=== PATIENT | male | born 1945 | race Caucasian/White ===

== ENCOUNTER 2018-04-13 03:31 | Inpatient (IN) ==
--- NOTE | 2018-04-13 03:52 | Emergency Department Note ---
SOB HPI - General Chief Complaint: Shortness of Breath/Dyspnea Stated Complaint: Short of breath Time Seen by Provider: 04/13/18 03:35 Source: patient Mode of arrival: ambulatory Limitations: no limitations - History of Present Illness Patient complains of shortness of breath, progressive for the last 24 hours. [place] like he cannot get a deep breath in. Does have an occasional cough but denies any flulike symptoms. No fevers or chills, no chest pain, shortness of breath developed gradually over the course of last day. Denies nausea vomiting diarrhea. No recent increase in ankle swelling. No other symptoms. No history of trauma. Former smoker quit in 2007. On arrival his O2 sat was 71% MD Complaint: shortness of breath - Related Data Home Medications Medication Instructions Recorded Confirmed Aspirin 81 mg CHEWED HS 08/04/15 01/16/17 Atorvastatin [Lipitor] 10 mg PO HS 08/04/15 01/16/17 Carvedilol [Coreg] 25 mg PO BIDCC 08/04/15 01/16/17 Escitalopram [Lexapro] 20 mg PO DAILY 08/04/15 01/16/17 Febuxostat [Uloric] 40 mg PO DAILY 08/04/15 01/16/17 Finasteride [Proscar] 5 mg PO HS 08/04/15 01/16/17 Levothyroxine [Synthroid] 50 mcg PO QAMAC 08/04/15 01/16/17 Losartan [Cozaar] 50 mg PO DAILY 08/04/15 01/16/17 Tamsulosin [Flomax] 0.4 mg PO HS 08/04/15 01/16/17 Spironolactone [Aldactone] 25 mg PO ONCE 01/16/17 01/16/17 Torsemide [Demadex] 20 mg PO DAILY 01/16/17 01/16/17 Previous Rx's Medication Instructions Recorded Docusate Sodium [Colace] 100 mg PO BID #60 capsule 08/09/15 HYDROcodone/APAP 10/325MG [[place] 1 - 2 tab PO Q4HP PRN #90 tablet 08/09/15 10-325Mg] Allergies Allergy/AdvReac Type Severity Reaction Status Date / Time chlortetracycline Allergy Mild Hives Verified 04/13/18 03:36 [Chlortetracycline] Review of Systems All systems ED: reviewed and negative except as stated. Past Medical History - Past Medical History Source: old records reviewed Medical history: Reports: coronary artery disease, DM, hyperlipidemia, hypertension, thyroid disease Psychiatric history: Reports: anxiety, depression Surgical history ED: Reports: cataract, herniorrhaphy Family history: Reports: no significant family history - Social History smoking status: Former smoker Alcohol use: Reports: None Physical Exam Limitations: no limitations General appearance: alert Head: atraumatic, normocephalic Eye: Present: normal appearance, PERRL, EOMI. Absent: scleral icterus, conjunctival injection ENT: normal exam, normal oropharynx, mucous membranes moist, TM's normal bilaterally Neck: Present: normal inspection, full ROM, trachea midline. Absent: tende rness, meningismus Chest: Present: normal inspection, symmetric chest wall rise Respiratory: Present: normal lung sounds bilaterally. Absent: respiratory distress, rales/crackles Cardiovascular: Present: regular rate, normal rhythm, normal heart sounds Abdominal: Present: soft, normal bowel sounds. Absent: distention, tenderness, trauma Extremities: Present: normal inspection, full ROM, tenderness, normal capillary refill. Absent: pedal edema, joint swelling, calf tenderness Back: Present: normal inspection Neurological: Present: alert, oriented X3, CN II-XII intact Psychiatric: Present: normal affect Skin: Present: warm, dry, intact, normal color. Absent: cyanosis Course - Reevaluation(s) Reevaluation #1: Patient was started on oxygen. We also started IV fluids up. Labs reviewed. ProBNP was normal. Does appear to have either a mass or an effusion to the left lower lobe. His d-dimer was elevated and I discussed obtaining a CT pulmonary angiogram versus CT of the chest with contrast and risks and benefits explained. He is hesitant to undergo CT scan imaging and thus we are pursuing getting a VQ scan. Options are discussed and he wishes to proceed with a VQ scan. We will need to transfer and I spoke with Dr. Juju Garcia in the emergency department will gladly accepted the patient as he will be monitored there while he is getting this VQ scan. Also spoke with Dr. Ochoa regarding hospital admission. At this point his symptoms are suspicious for PE. We did start him on Lovenox 100 120 mg subcutaneous Vital Signs Temperature 97.6 F 04/13/18 03:32 Pulse Rate 78 04/13/18 03:32 Respiratory Rate 24 H 04/13/18 03:32 Blood Pressure 145/81 04/13/18 03:32 Pulse Oximetry (%) 71 L 04/13/18 03:32 Temperature 97.6 F 04/13/18 03:32 Pulse Rate 66 04/13/18 06:40 Respiratory Rate 13 04/13/18 06:40 Blood Pressure 142/75 04/13/18 06:31 Pulse Oximetry (%) 98 04/13/18 06:40 Shortness of Breath/Dyspnea - [facility] Narrative Medical decision making narrative: Final diagnosis is hypoxia undetermined etiology. When is to admit him to the hospital, spoke with Dr. Ochoa. We will obtain V/Q scanning in the interim at [facility]. - Lab Data Result diagrams: 04/13/18 03:40 04/13/18 03:40 Lab Results 04/13/18 04/13/18 04/13/18 Range/Units 03:40 03:40 03:40 WBC 7.9 (4.5-11.0) K/mcL RBC 5.22 (4.50-5.90) M/mcL Hgb 15.7 (13.5-16.5) g/dL Hct 47.9 (41.0-55.0) % POC Hct 50.0 (41.0-55.0) % MCV 91.8 (80.0-100.0) fL MCH 30.0 (26.0-34.0) pg MCHC 32.7 (31.0-36.0) g/dL RDW 14.7 H (11.5-14.5) % Plt Count 210 (140-440) K/mcL MPV 8.0 (7.4-10.4) fL Gran % 76.0 (38.0-78.0) % Lymph % (Auto) 13.0 L (15.5-49.0) % Loving % (Auto) 8.9 (1.0-12.0) % Eos % (Auto) 2.0 (0.0-7.0) % Baso % (Auto) 0.1 (0.0-2.0) % Gran # 6.0 (1.8-8.0) K/mcL Lymph # (Auto) 1.0 L (1.5-4.8) K/mcL Loving # (Auto) 0.7 (0.1-0.9) K/mcL Eos # (Auto) 0.2 (0.0-0.7) K/mcL Baso # (Auto) 0 (0.0-0.3) K/mcL D-Dimer 1.56 H (0.00-0.40) ug/ml VBG Lactic Acid (0.5-2.0) mmol/L POC Sodium 140 (133-145) mmol/L Sodium (133-145) mmol/L POC Potassium 3.7 (3.3-5.1) mmol/L Potassium (3.3-5.1) mmol/L POC Chloride 96 (96-108) mmol/L Chloride (96-108) mmol/L Carbon Dioxide (22-30) mmol/L POC Total CO2 30 (22-30) mmol/L Anion Gap (8-16) POC BUN 37 H (8-23) mg/dl BUN (8-23) mg/dl Creatinine (0.7-1.2) mg/dl POC Creatinine 1.6 H (0.7-1.2) mg/dl GFR Calculation Glucose (70-105) mg/dL POC Glucose 125 H (70-105) mg/dL Calcium (8.6-10.4) mg/dl POC WB Ioniz Calcium 1.04 L (1.16-1.32) mmol/L Total Bilirubin (0.0-1.0) mg/dL AST (0-37) U/l ALT (0-40) U/l Alkaline Phosphatase (39-117) U/L Troponin T (0-0.03) ng/ml NT-Pro-B Natriuret Pep (0-125) pg/ml Total Protein (5.9-8.4) gm/dL Albumin (3.2-5.2) gm/dL Globulin (2.2-3.7) gm/dL Albumin/Globulin Ratio (1.0-2.3) 04/13/18 04/13/18 04/13/18 Range/Units 03:40 03:40 03:40 WBC (4.5-11.0) K/mcL RBC (4.50-5.90) M/mcL Hgb (13.5-16.5) g/dL Hct (41.0-55.0) % POC Hct (41.0-55.0) % MCV (80.0-100.0) fL MCH (26.0-34.0) pg MCHC (31.0-36.0) g/dL RDW (11.5-14.5) % Plt Count (140-440) K/mcL MPV (7.4-10.4) fL Gran % (38.0-78.0) % Lymph % (Auto) (15.5-49.0) % Loving % (Auto) (1.0-12.0) % Eos % (Auto) (0.0-7.0) % Baso % (Auto) (0.0-2.0) % Gran # (1.8-8.0) K/mcL Lymph # (Auto) (1.5-4.8) K/mcL Loving # (Auto) (0.1-0.9) K/mcL Eos # (Auto) (0.0-0.7) K/mcL Baso # (Auto) (0.0-0.3) K/mcL D-Dimer (0.00-0.40) ug/ml VBG Lactic Acid 1.6 (0.5-2.0) mmol/L POC Sodium (133-145) mmol/L Sodium 139 (133-145) mmol/L POC Potassium (3.3-5.1) mmol/L Potassium 3.9 (3.3-5.1) mmol/L POC Chloride (96-108) mmol/L Chloride 95 L (96-108) mmol/L Carbon Dioxide 31 H (22-30) mmol/L POC Total CO2 (22-30) mmol/L Anion Gap 13.0 (8-16) POC BUN (8-23) mg/dl BUN 35 H (8-23) mg/dl Creatinine 1.7 H (0.7-1.2) mg/dl POC Creatinine (0.7-1.2) mg/dl GFR Calculation 39 Glucose 126 H (70-105) mg/dL POC Glucose (70-105) mg/dL Calcium 9.2 (8.6-10.4) mg/dl POC WB Ioniz Calcium (1.16-1.32) mmol/L Total Bilirubin 1.0 (0.0-1.0) mg/dL AST 13 (0-37) U/l ALT 15 (0-40) U/l Alkaline Phosphatase 63 (39-117) U/L Troponin T 0.02 (0-0.03) ng/ml NT-Pro-B Natriuret Pep < 50.0 (0-125) pg/ml Total Protein 7.4 (5.9-8.4) gm/dL Albumin 4.4 (3.2-5.2) gm/dL Globulin 3.0 (2.2-3.7) gm/dL Albumin/Globulin Ratio 1.5 (1.0-2.3) Disposition Pt seen by SEED SPECIALIST/PA only: No Clinical Impression: Acute exacerbation of chronic obstructive airways disease, Community acquired pneumonia, Hypoxia Disposition: Still a Patient Condition: Serious Referrals: Miguel Martinez MD [Primary Care Provider] -
[2018-04-13 04:15] LABS: Basophils # (Auto) 0 K/mcL (0.0-0.3); Basophils % (Auto) 0.1 % (0.0-2.0); Eosinophils # (Auto) 0.2 K/mcL (0.0-0.7); Mean Cell Volume 91.8 fL (80.0-100.0); Mean Corpuscular HGB Conc 32.7 g/dL (31.0-36.0); Monocytes # (Auto) 0.7 K/mcL (0.1-0.9); Monocytes % (Auto) 8.9 % (1.0-12.0); Platelet Count 210 K/mcL (140-440); RBC 5.22 M/mcL (4.50-5.90); Red Cell Distribution Width 14.7 % (11.5-14.5)
[2018-04-13 04:38] LABS: proBNP < 50.0 pg/ml (0-125)
[2018-04-13 04:42] LABS: ALT/SGPT 15 U/l (0-40); Albumin 4.4 gm/dL (3.2-5.2); Albumin/Globulin Ratio 1.5 (1.0-2.3); Alkaline Phosphatase 63 U/L (39-117); Blood Urea Nitrogen 35 mg/dl (8-23)
[2018-04-13] MEDS ORDERED: ENOXAPARIN 120 MG/0.8 ML SYRINGE SQ ONE (06:36)
[2018-04-13] MEDS ORDERED: IPRATROPIUM/ALBUTEROL 3 ML AMPUL.NEB NEB ONE (06:37)
[2018-04-13] MEDS ORDERED: LACTATED RINGERS 1,000 ML IV SCH (07:00)
--- NOTE | 2018-04-13 08:43 | Internal Med History&Physical ---
Medical - H&P: HPI Patient information: Note initiated : 04/13/18 at 8:41 am Service Date, if different from initiated Date: [] Patient: Pradeep Zamorano a 72 y/o M admitted on for Short of breath. Chief Complaint: [] Chief complaint: SOB History of present illness: Mr. Zamorano is a 72 year old M with history of obesity hypoventilation syndrome/sleep apnea not on CPAP, history of hypertension, anxiety depression who presents to the ER with worsening shortness of breath associated with anx iety attack that has progressed over the last 12 hours. This morning patient could not breathe prompting him to come to ER. Patient symptoms has been ongoing over the last few months with progressive dyspnea and decreased functionality. His 3 years ago and ever since he has had frequent episodes of anxiety depression. He has gained over 50 pounds since his 's . He denies recent URI symptoms/this, sick contacts or travel. He said he is unable to take a deep breath however denies pleuritic chest pain lightheadedness or dizziness. He had a AAA repair at [place] by Dr. Victor Manuel Dutton few months ago. He follows up with PCP Brennon Neal Initial workup in the ER was consistent with hypoxia with oxygen saturation at 71% and was started on oxygen. In light of elevated creatinine VQ scan was performed to rule out PE at [place] which was negative. Chest imaging was unremarkable. Patient started on breathing treatment/supplemental oxygen. Hospitalist service was consulted in light of hypoxic respiratory failure. At the time of evaluation patient is anxious. He was able to endorse history as above. He denies bloody stools large joint pain endorses lower extremity swelling. He complains of effort intolerance. He recently had a stress test at [place]. 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 Lives alone Smoking status: Former smoker (Quit smoking 2007) Have you smoked in the last 12 months: No Alcohol use: none (Quit alcohol 2015) Medical - H&P: Meds Home Medications Medication Instructions Recorded Confirmed Type Aspirin 81 mg CHEWED HS 08/04/15 04/13/18 History Atorvastatin [Lipitor] 10 mg PO HS 08/04/15 04/13/18 History Carvedilol [Coreg] 25 mg PO BIDCC 08/04/15 04/13/18 History Escitalopram [Lexapro] 40 mg PO HS 08/04/15 04/13/18 History Febuxostat [Uloric] 40 mg PO DAILY 08/04/15 04/13/18 History Finasteride [Proscar] 5 mg PO HS 08/04/15 04/13/18 History Levothyroxine [Synthroid] 50 mcg PO QAMAC 08/04/15 04/13/18 History Losartan [Cozaar] 50 mg PO DAILY 08/04/15 04/13/18 History Tamsulosin [Flomax] 0.4 mg PO HS 08/04/15 04/13/18 History Spironolactone [Aldactone] 25 mg PO ONCE 01/16/17 04/13/18 History Torsemide [Demadex] 20 mg PO DAILY 01/16/17 04/13/18 History sitaGLIPtin [Januvia] 100 mg PO ONCE 04/13/18 04/13/18 History Allergies Allergy/AdvReac Type Severity Reaction Status Date / Time chlortetracycline Allergy Mild Hives Verified 04/13/18 03:36 [Chlortetracycline] Medical - H&P: Exam - Constitutional Vitals: Temp Pulse Resp BP Pulse Ox 97.6 F 74 17 108/93 94 04/13/18 03:32 04/13/18 08:15 04/13/18 08:01 04/13/18 08:01 04/13/18 08:15 General appearance: morbidly obese Exam: Eye movements symmetric Oral cavity dry No ear nose discharge Head normocephalic Neck no lymphadenopathy S1-S2 regular rhythm no murmur Diminished breath sounds bases but symmetrical Abdomen soft nontender extensive adiposity, pendulous Lower extremity no cyanosis clubbing Stasis venous changes/lymphedema No joint swelling erythema, normal range of motion of joints Skin no suspicious lesion Psych alert cooperative but anxious Neuro nonfocal Medical - H&P: Reslt - Labs CBC & Chem 7: 04/13/18 03:40 04/13/18 03:40 Labs: Short CBC 04/13/18 Range/Units 03:40 WBC 7.9 (4.5-11.0) K/mcL Hgb 15.7 (13.5-16.5) g/dL Hct 47.9 (41.0-55.0) % Plt Count 210 (140-440) K/mcL BMP 04/13/18 03:40 Sodium 139 Potassium 3.9 Chloride 95 L Carbon Dioxide 31 H BUN 35 H Creatinine 1.7 H Glucose 126 H Calcium 9.2 Cardiac Enzymes 04/13/18 Range/Units 03:40 Troponin T 0.02 (0-0.03) ng/ml Liver Function 04/13/18 Range/Units 03:40 Total Bilirubin 1.0 (0.0-1.0) mg/dL AST 13 (0-37) U/l ALT 15 (0-40) U/l Alkaline Phosphatase 63 (39-117) U/L Albumin 4.4 (3.2-5.2) gm/dL Medical - H&P: A/P (1) Acute respiratory failure with hypoxia Current visit: Yes Status: Acute * Acute hypoxic respiratory failure-etiology in question. Low probability PE. CT contrast chest in 24 hours once creatinine improves * Acute kidney injury. Obtain medical records from [place] to evaluate baseline. * History of CAD-continue statin/beta-arvin/ARB/aspirin-check echocardiogram * History of gout continue ULoric * Anxiety disorder continue escitalopram * Hypertension-continue spironolactone/losartan/Coreg * Hyperlipidemia-continue statin * Obstructive sleep apnea-patient did not tolerate CPAP in the past. Check echocardiogram to evaluate right heart pressures * Hypothyroidism-continue thyroxine * History of BPH-Tamsulosin/finasteride * DM type II-sitagliptin/prandial insulin * Full code * Prophylaxis currently full dose Lovenox Plan * Inpatient telemetry admit * Full dose anticoagulation * Echocardiogram * CT chest in 24 hours * Pulmonary toilet/bronchodilators * Pre-existing well condition management at home meds
--- NOTE | 2018-04-13 08:53 | XRay Report ---
HISTORY: Dyspnea FINDINGS: There are small bands of discoid atelectasis adjacent to both diaphragms. The mid and upper lung gallardo are clear. There is no alveolar infiltrate, mass or congestive heart failure. The heart size is within normal limits. No pleural effusion is present. IMPRESSION: Mild bibasilar discoid atelectasis Interpreted and Authenticated by: Dhiraj Adames 04/13/18
[2018-04-13] MEDS ORDERED: ACETAMINOPHEN 325 MG TABLET PO PRN (10:54)
[2018-04-13] MEDS ORDERED: ACETAMINOPHEN 1,000 MG/100 ML BOTTLE IV PRN (10:54)
[2018-04-13] MEDS ORDERED: POTASSIUM CHLORIDE 20 MEQ PACKET PO PRN (10:54)
[2018-04-13] MEDS ORDERED: HEPARIN 5,000 UNIT/ML VIAL SQ SCH (10:54)
[2018-04-13] MEDS ORDERED: MAGNESIUM SULFATE 2 GM/50 ML BAG IV PRN (10:54)
[2018-04-13] MEDS ORDERED: ONDANSETRON 4 MG/2 ML VIAL IV PRN (10:54)
[2018-04-13] MEDS ORDERED: DEXTROSE 31 GM ORAL.SUSP PO PRN (11:00)
[2018-04-13] MEDS ORDERED: DEXTROSE 50% 50 ML VIAL IV PRN (11:00)
[2018-04-13 12:00] LABS: C-Reactive Protein 3.8 mg/dl (0.0-0.8)
[2018-04-13] MEDS: IPRATROPIUM/ALBUTEROL 3 ML AMPUL.NEB NEB SCH ×4 (12:00→23:49)
[2018-04-13] MEDS: DOCUSATE SODIUM 100 MG CAPSULE PO SCH ×2 (12:12→20:08)
[2018-04-13] MEDS: MULTIVIT,THER IRON,CA,FA & MIN 1 TABLET PO SCH (12:12)
[2018-04-13] MEDS: LOSARTAN 50 MG TABLET PO SCH (12:12)
[2018-04-13] MEDS: 0.9 % SODIUM CHLORIDE 1,000 ML IV SCH (12:12)
[2018-04-13] MEDS: INSULIN LISPRO 1 UNIT/0.01 ML UNIT SQ SCH ×3 (12:19→20:24)
[2018-04-13] MEDS: BUDESONIDE 0.5 MG/2 ML AMPUL.NEB NEB SCH ×2 (12:41→20:42)
[2018-04-13] MEDS: 0.9 % SODIUM CHLORIDE 10 ML SYRINGE IV SCH ×2 (16:07→20:09)
[2018-04-13] MEDS: CARVEDILOL 12.5 MG TABLET PO SCH (17:27)
[2018-04-13] MEDS: RIVAROXABAN 15 MG TABLET PO SCH (17:27)
[2018-04-13] MEDS: ATORVASTATIN 20 MG TABLET PO SCH (20:05)
[2018-04-13] MEDS: TAMSULOSIN 0.4 MG CAPSULE PO SCH (20:05)
[2018-04-13] MEDS: ESCITALOPRAM 20 MG TABLET PO SCH (20:06)
[2018-04-13] MEDS: ASPIRIN 81 MG TAB.CHEW CHEWED SCH (20:06)
[2018-04-13] MEDS: FINASTERIDE 5 MG TABLET PO SCH (20:06)
[2018-04-13] MEDS: SENNOSIDES/DOCUSATE SODIUM 1 TAB TABLET PO SCH (20:08)
[2018-04-14] MEDS: IPRATROPIUM/ALBUTEROL 3 ML AMPUL.NEB NEB SCH ×6 (03:30→22:45)
[2018-04-14] MEDS: 0.9 % SODIUM CHLORIDE 10 ML SYRINGE IV SCH ×3 (05:25→22:06)
[2018-04-14 06:19] LABS: Mean Corpuscular HGB Conc 32.5 g/dL (31.0-36.0); Platelet Count 176 K/mcL (140-440); RBC 4.64 M/mcL (4.50-5.90); Red Cell Distribution Width 14.4 % (11.5-14.5)
[2018-04-14] MEDS: LEVOTHYROXINE 50 MCG TABLET PO SCH (07:33)
[2018-04-14 07:41] LABS: Eosinophils % (Manual) 4 % (0-7); Lymphocytes % 15 % (15-49); Monocytes % (Manual) 7 % (1-12); Platelet Estimate NORMAL (NORMAL); RBC Morphology NORMAL (NORMAL); Segmented Neutrophils % 74 % (38-78)
[2018-04-14] MEDS: BUDESONIDE 0.5 MG/2 ML AMPUL.NEB NEB SCH ×2 (07:59→22:45)
[2018-04-14] MEDS: INSULIN LISPRO 1 UNIT/0.01 ML UNIT SQ SCH ×4 (08:27→22:03)
[2018-04-14] MEDS: RIVAROXABAN 15 MG TABLET PO SCH ×2 (08:28→16:58)
[2018-04-14] MEDS: sitaGLIPtin 100 MG TABLET PO SCH (08:28)
[2018-04-14] MEDS: CARVEDILOL 12.5 MG TABLET PO SCH ×2 (08:28→16:58)
[2018-04-14] MEDS: MULTIVIT,THER IRON,CA,FA & MIN 1 TABLET PO SCH (08:28)
[2018-04-14] MEDS: SPIRONOLACTONE 25 MG TABLET PO SCH (08:28)
[2018-04-14] MEDS: DOCUSATE SODIUM 100 MG CAPSULE PO SCH ×2 (08:28→22:05)
[2018-04-14] MEDS: TORSEMIDE 10 MG TABLET PO SCH (08:28)
[2018-04-14] MEDS: LOSARTAN 50 MG TABLET PO SCH (08:28)
[2018-04-14 08:55] LABS: ALT/SGPT 13 U/l (0-40); Albumin/Globulin Ratio 1.3 (1.0-2.3); Alkaline Phosphatase 58 U/L (39-117); Bilirubin,Direct 0.3 mg/dL (0.0-0.3); Blood Urea Nitrogen 24 mg/dl (8-23); Gamma Glutamyl Transpeptidase 18 U/L (8-61); Uric Acid 8.1 mg/dL (2.5-8.0)
[2018-04-14] MEDS ORDERED: FEBUXOSTAT 40 MG PO SCH (09:00)
[2018-04-14] MEDS ORDERED: PNEUMOCOCCAL 23-VAL P-SAC VAC 0.5 ML SYRINGE IM ONE (10:00)
--- NOTE | 2018-04-14 10:21 | Internal Med Progress Note ---
Medical - PN: Subj Patient information: Note initiated : 04/14/18 at 10:18 am Service Date, if different from initiated Date: [] Patient: Pradeep Zamorano a 72 y/o M admitted on 04/13/18 for Short of breath. Chief Complaint: [] Interval history: Mr. Zamorano is a 72 year old M with history of obesity hypoventilation s yndrome/sleep apnea not on CPAP, history of hypertension, anxiety depression who presents to the ER with worsening shortness of breath associated with anxiety attack that has progressed over the last 12 hours. This morning patient could not breathe prompting him to come to ER. Patient symptoms has been ongoing over the last few months with progressive dyspnea and decreased functionality. His 3 years ago and ever since he has had frequent episodes of anxiety depression. He has gained over 50 pounds since his 's . He denies recent URI symptoms/this, sick contacts or travel. He said he is unable to take a deep breath however denies pleuritic chest pain lightheadedness or dizziness. He had a AAA repair at [place] by Dr. Victor Manuel Dutton few months ago. He follows up with PCP Brennon Neal Initial workup in the ER was consistent with hypoxia with oxygen saturation at 71% and was started on oxygen. In light of elevated creatinine VQ scan was performed to rule out PE at [place] which was negative. Chest imaging was unremarkable. Patient started on breathing treatment/supplemental oxygen. Hospitalist service was consulted in light of hypoxic respiratory failure. At the time of evaluation patient is anxious. He was able to endorse history as above. He denies bloody stools large joint pain endorses lower extremity swelling. He complains of effort intolerance. He recently had a stress test at [place]. 04/13-patient doing better. CT angiogram chest in a.m. Creatinine down to 1.3. Much improved anxiety. Sats93% on 2 L oxygen. Able to ambulate. Tolerating diet. Discussed echo finding with multichamber enlargement/dilatation but norm al EF. Right ventricle pressures could not be assessed. Also discussed about using CPAP. RT to evaluate nasal trumpet/pillow for better delivery and improve compliance. No other concerns expressed by nursing staff. If negative CTA will DC anticoagulation - Constitutional Vitals: Vital Signs Temp Pulse Resp BP Pulse Ox 97.2 F 64 16 158/76 97 04/14/18 07:25 04/14/18 08:06 04/14/18 08:06 04/14/18 07:25 04/14/18 08:00 Period Temp Pulse Resp BP Sys/Hercules Pulse Ox Last 24 Hr 97.2 F-99.2 F 62-90 16-24 118-158/64-93 93-99 Intake and Output 04/13/18 04/14/18 04/14/18 21:59 05:59 13:59 Intake Total 920 300 Output Total 600 775 Balance 320 -475 Weight 321 lb 14.4 oz Intake & Output: Intake & Output 04/13/18 04/14/18 04/14/18 21:59 05:59 13:59 Intake Total 920 300 Output Total 600 775 Balance 320 -475 Weight 321 lb 14.4 oz Intake: Oral 920 300 Output: Void Amount 600 775 Other: Meal Lunch Urine Appearance Clear Clear Urine Color Dark Yellow Dark Yellow Urine Odor Normal General appearance: morbidly obese, no acute distress Exam: Improved anxiety No labored breathing on 2 L oxyge Minimal lymphedema Alert oriented No telemetry events Medical - PN: Obj Da - Labs CBC & Chem 7: 04/14/18 03:30 04/14/18 07:55 Labs: Abnormal Lab Results 04/14/18 04/13/18 04/13/18 07:55 11:13 11:13 RDW Lymph % (Auto) Lymph # (Auto) ESR 24 H D-Dimer Chloride Carbon Dioxide POC BUN BUN 24 H Creatinine 1.3 H POC Creatinine Glucose 137 H POC Glucose Uric Acid 8.1 H POC WB Ioniz Calcium Phosphorus 2.2 L Total Bilirubin 1.6 H C-Reactive Protein 3.8 H 04/13/18 04/13/18 04/13/18 03:40 03:40 03:40 RDW 14.7 H Lymph % (Auto) 13.0 L Lymph # (Auto) 1.0 L ESR D-Dimer 1.56 H Chloride 95 L Carbon Dioxide 31 H POC BUN BUN 35 H Creatinine 1.7 H POC Creatinine Glucose 126 H POC Glucose Uric Acid POC WB Ioniz Calcium Phosphorus Total Bilirubin C-Reactive Protein 04/13/18 03:40 RDW Lymph % (Auto) Lymph # (Auto) ESR D-Dimer Chloride Carbon Dioxide POC BUN 37 H BUN Creatinine POC Creatinine 1.6 H Glucose POC Glucose 125 H Uric Acid POC WB Ioniz Calcium 1.04 L Phosphorus Total Bilirubin C-Reactive Protein Meds: Medications Acetaminophen (Tylenol) 650 mg PO Q4-6HP PRN PRN Reason: PAIN/FEVER > 101 Albuterol/Ipratropium (Duoneb) 3 ml NEB Q4HRT [facility] Last Admin: 04/14/18 07:59 Dose: 3 ml Documented by: Aspirin (Aspirin) 81 mg CHEWED [facility] Last Admin: 04/13/18 20:06 Dose: 81 mg Documented by: Atorvastatin Calcium (Lipitor) 10 mg PO [facility] Last Admin: 04/13/18 20:05 Dose: 10 mg Documented by: Budesonide (Pulmicort) 0.5 mg NEB Q12 [facility] Last Admin: 04/14/18 07:59 Dose: 0.5 mg Documented by: [facility] Last Admin: 04/14/18 08:28 Dose: 25 mg Documented by: Dextrose (Dextrose 50%) 0 ml IV UD PRN PRN Reason: Hypoglycemia Diagnostic Test (Pha) (Accu-Chek) 1 each FS ACHS [facility] Last Admin: 04/14/18 08:27 Dose: 1 each Documented by: Docusate Sodium (Colace) 100 mg PO BID [facility] Last Admin: 04/14/18 08:28 Dose: 100 mg Documented by: Escitalopram Oxalate (Lexapro) 40 mg PO [facility] Last Admin: 04/13/18 20:06 Dose: 40 mg Documented by: Finasteride (Proscar) 5 mg PO [facility] Last Admin: 04/13/18 20:06 Dose: 5 mg Documented by: Glucose (Insta-Glucose) 15 gm PO PRN PRN PRN Reason: Hypoglycemia Magnesium Sulfate (Magnesium Sulfate) 2 gm in 50 mls @ 50 mls/hr IV UD PRN PRN Reason: MG = or < 1.7 Sodium Chloride (Sodium Chloride 0.9%) 1,000 mls @ 50 mls/hr IV .Q20H [facility] Stop: 04/15/18 22:53 Last Admin: 04/13/18 12:12 Dose: 50 mls/hr Documented by: Acetaminophen (Ofirmev) 1,000 mg in 100 mls @ 200 mls/hr IV Q6HP PRN PRN Reason: PAIN/FEVER > 101 Insulin Human Lispro (Humalog) 0 unit SQ ACHS [facility]; Protocol Last Admin: 04/14/18 08:27 Dose: 1 units Documented by: Iron Carb/Multivit/Whatcom/Folic Acid (Multivitamin W/Minerals) 1 tab PO DAILY [facility] Last Admin: 04/14/18 08:28 Dose: 1 tab Documented by: Levothyroxine Sodium (Synthroid) 50 mcg PO QAMAC [facility] Last Admin: 04/14/18 07:33 Dose: 50 mcg Documented by: Losartan Potassium (Cozaar) 50 mg PO DAILY [facility] Last Admin: 04/14/18 08:28 Dose: 50 mg Documented by: Febuxostat (Uloric) (40 Mg Tablet) 1 dose PO DAILY [facility] Ondansetron HCl (Zofran) 4 mg IV Q4-6HP PRN PRN Reason: Nausea And Vomiting Potassium Chloride (Klor-Con) 40 meq PO DAILYP PRN PRN Reason: K+ < 3.5 Rivaroxaban (Xarelto) 15 mg PO BIDCC [facility] Last Admin: 04/14/18 08:28 Dose: 15 mg Documented by: Senna/Docusate Sodium (Senna Plus Tablet) 1 tab PO HS [facility] [place] Last Admin: 04/13/18 20:08 Dose: Not Given Documented by: Sitagliptin Phosphate (Januvia) 100 mg PO DAILY [facility] [place] Last Admin: 04/14/18 08:28 Dose: 100 mg Documented by: Sodium Chloride (Saline Flush) 10 ml IV Q8 [facility] [place] Last Admin: 04/14/18 05:25 Dose: 10 ml Documented by: Spironolactone (Aldactone) 25 mg PO DAILY [facility] Last Admin: 04/14/18 08:28 Dose: 25 mg Documented by: Tamsulosin HCl (Flomax) 0.4 mg PO HS [facility] Last Admin: 04/13/18 20:05 Dose: 0.4 mg Documented by: Torsemide (Demadex) 20 mg PO DAILY [facility] Last Admin: 04/14/18 08:28 Dose: 20 mg Documented by: Trazodone HCl (Desyrel) 50 mg PO HSP PRN PRN Reason: Insomnia Medical - PN: A/P - Time Spent With Patient Total time spent is greater than 50% in coordination of care (as documented) at patient's floor/unit and/or counseling patient: 25 - 35 minutes (1) Acute respiratory failure with hypoxia Status: Acute Assessment and plan: * Acute hypoxic respiratory failure-etiology in question. On 2 L oxygen. Low probability PE on VQ scan. CT contrast chest in a.m. * Acute kidney injury. Creatinine 1.6 ->1.3. Obtain medical records from [place] to evaluate baseline. * History of CAD-continue statin/beta-arvin/ARB/aspirin-chamber enlargement noted but normal EF * History of gout continue ULoric * Anxiety disorder continue escitalopram. Improved * Hypertension-continue spironolactone/losartan/Coreg * Hyperlipidemia-continue statin * Obstructive sleep apnea-patient did not tolerate CPAP in the past due to claustrophobia. RT to evaluate different delivery options including nasal pillows/trumpet * Hypothyroidism-continue thyroxine * History of BPH-Tamsulosin/finasteride * DM type II-sitagliptin/prandial insulin * Full code * Prophylaxis currently full dose Lovenox Plan * CTA in a.m. * Continue anticoagulation * Pulmonary toilet/bronchodilators * Exercise oximetry * Pre-existing medical condition management at home meds * Outpatient PFT and pulmonology follow-up Current Visit: Yes Medical - PN: Qual - VTE Deep Vein Thrombosis/Pulmonary Embolism Present on Admission: No
[2018-04-14] MEDS: 0.9 % SODIUM CHLORIDE 1,000 ML IV SCH (10:35)
[2018-04-14] MEDS: FEBUXOSTAT 40 MG PO SCH (10:46)
[2018-04-14] MEDS: LORazepam 0.5 MG TABLET PO SCH (12:31)
[2018-04-14] MEDS: ASPIRIN 81 MG TAB.CHEW CHEWED SCH (22:05)
[2018-04-14] MEDS: SENNOSIDES/DOCUSATE SODIUM 1 TAB TABLET PO SCH (22:05)
[2018-04-14] MEDS: TAMSULOSIN 0.4 MG CAPSULE PO SCH (22:05)
[2018-04-14] MEDS: ESCITALOPRAM 20 MG TABLET PO SCH (22:05)
[2018-04-14] MEDS: FINASTERIDE 5 MG TABLET PO SCH (22:06)
[2018-04-14] MEDS: ATORVASTATIN 20 MG TABLET PO SCH (22:06)
[2018-04-14] MEDS: traZODone HCL 50 MG TABLET PO PRN (22:07)
[2018-04-15] MEDS: IPRATROPIUM/ALBUTEROL 3 ML AMPUL.NEB NEB SCH ×6 (02:08→23:08)
[2018-04-15] MEDS ORDERED: LORazepam 2 MG/ML VIAL IV ONE (03:17)
[2018-04-15] MEDS ORDERED: LORazepam 2 MG/ML VIAL ONE (03:23)
[2018-04-15] MEDS: 0.9 % SODIUM CHLORIDE 10 ML SYRINGE IV SCH ×3 (05:35→22:33)
[2018-04-15 06:20] LABS: Mean Cell Volume 92.6 fL (80.0-100.0); Mean Corpuscular HGB Conc 32.7 g/dL (31.0-36.0); Platelet Count 181 K/mcL (140-440); RBC 4.56 M/mcL (4.50-5.90); Red Cell Distribution Width 14.2 % (11.5-14.5)
[2018-04-15 07:14] LABS: ALT/SGPT 12 U/l (0-40); Albumin 3.5 gm/dL (3.2-5.2); Albumin/Globulin Ratio 1.3 (1.0-2.3); Alkaline Phosphatase 51 U/L (39-117); Bilirubin,Direct < 0.2 mg/dL (0.0-0.3); Blood Urea Nitrogen 22 mg/dl (8-23); Gamma Glutamyl Transpeptidase 15 U/L (8-61); Uric Acid 7.5 mg/dL (2.5-8.0)
[2018-04-15] MEDS ORDERED: IOPAMIDOL 100 ML BOTTLE IV ONE (07:15)
[2018-04-15] MEDS: BUDESONIDE 0.5 MG/2 ML AMPUL.NEB NEB SCH ×2 (07:24→19:26)
[2018-04-15 07:41] LABS: Eosinophils % (Manual) 2 % (0-7); Lymphocytes % 26 % (15-49); Monocytes % (Manual) 8 % (1-12); Platelet Estimate NORMAL (NORMAL); RBC Morphology NORMAL (NORMAL); Segmented Neutrophils % 64 % (38-78); Toxic Granulation 1+ (NONE SEEN)
[2018-04-15] MEDS: INSULIN LISPRO 1 UNIT/0.01 ML UNIT SQ SCH ×4 (07:56→22:34)
[2018-04-15] MEDS: LEVOTHYROXINE 50 MCG TABLET PO SCH (07:56)
[2018-04-15] MEDS: TORSEMIDE 10 MG TABLET PO SCH (07:58)
[2018-04-15] MEDS: sitaGLIPtin 100 MG TABLET PO SCH (08:07)
[2018-04-15] MEDS: CARVEDILOL 12.5 MG TABLET PO SCH ×2 (08:07→18:00)
[2018-04-15] MEDS: RIVAROXABAN 15 MG TABLET PO SCH (08:08)
[2018-04-15] MEDS: SPIRONOLACTONE 25 MG TABLET PO SCH (08:08)
--- NOTE | 2018-04-15 08:24 | Cat Scan Report ---
CLINICAL INFORMATION: Dyspnea COMPARISON: None TECHNIQUE: Axial images obtained through the chest. 80 mL intravenous contrast was administered, and scanning was performed during pulmonary arterial phase. Sagittally and coronally reformatted images were obtained. MIP reformatted images. FINDINGS: Main pulmonary, right pulmonary artery, left pulmonary artery are negative. No pulmonary embolism. No lobar, segmental, or subsegmental emboli. There is pulmonary parenchymal density in the lingular segment of the left upper lobe as well as the left lower lobe. Findings are consistent with volume loss. There is mild infiltrate or atelectasis at the right lung base. There is no discrete mass. No evidence for neoplasm. No pathologic hilar or mediastinal adenopathy. No axillary adenopathy. No supraclavicular adenopathy. There is very severe calcified coronary artery disease. No pericardial fluid. No significant pleural effusion. There is a 2.5 cm right adrenal nodule. GHADA values are approximately 0 consistent with benign fat-containing adenoma IMPRESSION: 1. Negative pulmonary CTA. No pulmonary embolism 2. Bilateral pulmonary parenchymal density consistent with benign atelectasis. Pneumonia is not excluded. 3. No pulmonary parenchymal mass. 4. Benign fat-containing right adrenal nodule 5. Severe coronary artery calcification The exam was performed using radiation dose optimization techniques including, but not limited to, automated exposure control, adjustment of the mA and/or kV according to patient size and use of iterative reconstruction technique. Interpreted and Authenticated by: Victor Manuel Corea 04/15/18
--- NOTE | 2018-04-15 10:36 | Internal Med Progress Note ---
Medical - PN: Subj Patient information: Note initiated : 04/15/18 at 10:32 am Service Date, if different from initiated Date: [] Patient: Pradeep Zamorano a 72 y/o M admitted on 04/13/18 for Short of breath. Chief Complaint: [] Interval history: Mr. Zamorano is a 72 year old M with history of obesity hypoventilation s yndrome/sleep apnea not on CPAP, history of hypertension, anxiety depression who presents to the ER with worsening shortness of breath associated with anxiety attack that has progressed over the last 12 hours. This morning patient could not breathe prompting him to come to ER. Patient symptoms has been ongoing over the last few months with progressive dyspnea and decreased functionality. His 3 years ago and ever since he has had frequent episodes of anxiety depression. He has gained over 50 pounds since his 's . He denies recent URI symptoms/this, sick contacts or travel. He said he is unable to take a deep breath however denies pleuritic chest pain lightheadedness or dizziness. He had a AAA repair at [place] by Dr. Victor Manuel Dutton few months ago. He follows up with PCP Brennon Neal Initial workup in the ER was consistent with hypoxia with oxygen saturation at 71% and was started on oxygen. In light of elevated creatinine VQ scan was performed to rule out PE at [place] which was negative. Chest imaging was unremarkable. Patient started on breathing treatment/supplemental oxygen. Hospitalist service was consulted in light of hypoxic respiratory failure. At the time of evaluation patient is anxious. He was able to endorse history as above. He denies bloody stools large joint pain endorses lower extremity swelling. He complains of effort intolerance. He recently had a stress test at [place]. 04/13-patient doing better. CT angiogram chest in a.m. Creatinine down to 1.3. Much improved anxiety. Sats93% on 2 L oxygen. Able to ambulate. Tolerating diet. Discussed echo finding with multichamber enlargement/dilatation but norm al EF. Right ventricle pressures could not be assessed. Also discussed about using CPAP. RT to evaluate nasal trumpet/pillow for better delivery and improve compliance. No other concerns expressed by nursing staff. If negative CTA will DC anticoagulation 04/14-CT angiogram negative. Basilar atelectasis. Persistent hypoxia requiring 2 L oxygen likely from obesity hypoventilation/sleep apnea. ABG 7.42/48/56. Will need outpatient sleep study/pulmonology follow-up. Anxiety much improved on as needed benzodiazepine. Discontinue full dose anti-coagulation. Counseled on weight reduction. Anticipate discharge in 24 hours - Constitutional Vitals: Vital Signs Temp Pulse Resp BP Pulse Ox 97.6 F 64 16 166/84 94 04/15/18 07:00 04/15/18 07:37 04/15/18 07:37 04/15/18 07:00 04/15/18 07:25 Period Temp Pulse Resp BP Sys/Hercules Pulse Ox Last 24 Hr 97.3 F-98.9 F 56-71 14-20 114-171/65-97 86-96 Intake and Output 04/14/18 04/15/18 04/15/18 21:59 05:59 13:59 Intake Total 460 300 Output Total 400 550 Balance 60 -250 Weight 320 lb 12.8 oz Intake & Output: Intake & Output 04/14/18 04/15/18 04/15/18 21:59 05:59 13:59 Intake Total 460 300 Output Total 400 550 Balance 60 -250 Weight 320 lb 12.8 oz Intake: Oral 460 300 Output: Void Amount 400 550 Other: Meal Dinner Percent of Meal Consumed 100% Urine Appearance Clear Clear Urine Color Bright Yellow Dark Yellow Urine Odor Normal Normal General appearance: no acute distress Exam: Anxious Nonlabored breathing on 2 L oxygen Nondistended abdomen No lymphedema Medical - PN: Obj Da - Labs CBC & Chem 7: 04/15/18 03:05 04/15/18 03:05 Labs: Abnormal Lab Results 04/15/18 04/15/18 04/14/18 03:05 03:05 07:55 RDW Lymph % (Auto) Lymph # (Auto) WBC Morphology Abnorm A Toxic Granulation 1+ A ESR D-Dimer Chloride Carbon Dioxide POC BUN BUN 24 H Creatinine 1.3 H 1.3 H POC Creatinine Glucose 118 H 137 H POC Glucose Uric Acid 8.1 H POC WB Ioniz Calcium Phosphorus 2.2 L Total Bilirubin 1.6 H C-Reactive Protein 04/13/18 04/13/18 04/13/18 11:13 11:13 03:40 RDW Lymph % (Auto) Lymph # (Auto) WBC Morphology Toxic Granulation ESR 24 H D-Dimer Chloride 95 L Carbon Dioxide 31 H POC BUN BUN 35 H Creatinine 1.7 H POC Creatinine Glucose 126 H POC Glucose Uric Acid POC WB Ioniz Calcium Phosphorus Total Bilirubin C-Reactive Protein 3.8 H 04/13/18 04/13/18 04/13/18 03:40 03:40 03:40 RDW 14.7 H Lymph % (Auto) 13.0 L Lymph # (Auto) 1.0 L WBC Morphology Toxic Granulation ESR D-Dimer 1.56 H Chloride Carbon Dioxide POC BUN 37 H BUN Creatinine POC Creatinine 1.6 H Glucose POC Glucose 125 H Uric Acid POC WB Ioniz Calcium 1.04 L Phosphorus Total Bilirubin C-Reactive Protein Meds: Medications Acetaminophen (Tylenol) 650 mg PO Q4-6HP PRN PRN Reason: PAIN/FEVER > 101 Last Admin: 04/14/18 22:12 Dose: 650 mg Documented by: Albuterol/Ipratropium (Duoneb) 3 ml NEB Q4HRT PENDING SALE TO [facility] Last Admin: 04/15/18 07:24 Dose: 3 ml Documented by: Aspirin (Aspirin) 81 mg CHEWED [facility] Last Admin: 04/14/18 22:05 Dose: 81 mg Documented by: Atorvastatin Calcium (Lipitor) 10 mg PO [facility] Last Admin: 04/14/18 22:06 Dose: 10 mg Documented by: Budesonide (Pulmicort) 0.5 mg NEB Q12 PENDING SALE TO [facility] Last Admin: 04/15/18 07:24 Dose: 0.5 mg Documented by: [facility] Last Admin: 04/15/18 08:07 Dose: 25 mg Documented by: Dextrose (Dextrose 50%) 0 ml IV UD PRN PRN Reason: Hypoglycemia Diagnostic Test (Pha) (Accu-Chek) 1 each FS ACHS PENDING SALE TO [facility] Last Admin: 04/15/18 07:56 Dose: 1 each Documented by: Docusate Sodium (Colace) 100 mg PO BID [facility]END[facility] SALE TO [facility] Last Admin: 04/14/18 22:05 Dose: 100 mg Documented by: Escitalopram Oxalate (Lexapro) 40 mg PO [facility] Last Admin: 04/14/18 22:05 Dose: 40 mg Documented by: Finasteride (Proscar) 5 mg PO [facility] Last Admin: 04/14/18 22:06 Dose: 5 mg Documented by: Glucose (Insta-Glucose) 15 gm PO PRN PRN PRN Reason: Hypoglycemia Magnesium Sulfate (Magnesium Sulfate) 2 gm in 50 mls @ 50 mls/hr IV UD PRN PRN Reason: MG = or < 1.7 Acetaminophen (Ofirmev) 1,000 mg in 100 mls @ 200 mls/hr IV Q6HP PRN PRN Reason: PAIN/FEVER > 101 Insulin Human Lispro (Humalog) 0 unit SQ ACHS PENDING SALE TO [facility]; Protocol Last Admin: 04/15/18 07:56 Dose: Not Given Documented by: Iron Carb/Multivit/Certified Low Vision Therapist/Folic Acid (Multivitamin W/Minerals) 1 tab PO DAILY [facility] S[facility] TO [facility] Last Admin: 04/14/18 08:28 Dose: 1 tab Documented by: Levothyroxine Sodium (Synthroid) 50 mcg PO QAMAC PENDING SALE TO [facility] Last Admin: 04/15/18 07:56 Dose: 50 mcg Documented by: Lorazepam (Ativan) 0.25 mg PO DAILY [facility] Last Admin: 04/14/18 12:31 Dose: 0.25 mg Documented by: Losartan Potassium (Cozaar) 50 mg PO DAILY [facility] Last Admin: 04/14/18 08:28 Dose: 50 mg Documented by: Febuxostat (Uloric) (40 Mg Tablet) 1 dose PO DAILY [facility] TO [facility] Last Admin: 04/14/18 10:46 Dose: 1 dose Documented by: Ondansetron HCl (Zofran) 4 mg IV Q4-6HP PRN PRN Reason: Nausea And Vomiting Potassium Chloride (Klor-Con) 40 meq PO DAILYP PRN PRN Reason: K+ < 3.5 Rivaroxaban (Xarelto) 15 mg PO BIDCC PENDING SALE TO [facility] Last Admin: 04/15/18 08:08 Dose: 15 mg Documented by: Senna/Docusate Sodium (Senna Plus Tablet) 1 tab PO HS PEND[facility] SALE TO [facility] Last Admin: 04/14/18 22:05 Dose: 1 tab Documented by: Sitagliptin Phosphate (Januvia) 100 mg PO DAILY [facility] Last Admin: 04/15/18 08:07 Dose: 100 mg Documented by: Sodium Chloride (Saline Flush) 10 ml IV Q8 PEND[facility] SALE TO [facility] Last Admin: 04/15/18 05:35 Dose: 10 ml Documented by: Spironolactone (Aldactone) 25 mg PO DAILY [facility] Last Admin: 02/12/19 08:08 Dose: 25 mg Documented by: Tamsulosin HCl (Flomax) 0.4 mg PO HS PEND[facility] SALE TO [facility] Last Admin: 04/14/18 22:05 Dose: 0.4 mg Documented by: Torsemide (Demadex) 20 mg PO DAILY [facility] Last Admin: 04/15/18 07:58 Dose: 20 mg Documented by: Trazodone HCl (Desyrel) 50 mg PO HSP PRN PRN Reason: Insomnia Last Admin: 04/14/18 22:07 Dose: 50 mg Documented by: Medical - PN: A/P - Time Spent With Patient Total time spent is greater than 50% in coordination of care (as documented) at patient's floor/unit and/or counseling patient: 15 - 24 minutes (1) Acute respiratory failure with hypoxia Status: Acute Assessment and plan: * Acute hypoxic respiratory failure-likely OHS/KEVEN. CTA negative. Continue 2 L oxygen. Schedule outpatient pulmonology follow-up * Acute kidney injury. Creatinine 1.6 ->1.3. * History of CAD-continue statin/beta-arvin/ARB/aspirin-chamber enlargement noted but normal EF * History of gout managed on Uloric * Anxiety disorder continue escitalopram. Improved * Hypertension-continue spironolactone/losartan/Coreg * Hyperlipidemia-continue statin * Obstructive sleep apnea-patient did not tolerate CPAP in the past due to claustrophobia even though patient has machine for last 15 years. Will need outpatient pulmonary follow-up/repeat sleep study. * Hypothyroidism-continue thyroxine * History of BPH-Tamsulosin/finasteride * DM type II-sitagliptin/prandial insulin * Full code * Prophylaxis currently full dose Lovenox Plan * Exercise oximetry * Outpatient pulmonology follow-up * Outpatient sleep study * Discontinue anticoagulation * Pre-existing medical condition management at home meds Current Visit: Yes Medical - PN: Qual - VTE Deep Vein Thrombosis/Pulmonary Embolism Present on Admission: No
[2018-04-15] MEDS: LOSARTAN 50 MG TABLET PO SCH (12:59)
[2018-04-15] MEDS: MULTIVIT,THER IRON,CA,FA & MIN 1 TABLET PO SCH (12:59)
[2018-04-15] MEDS: LORazepam 0.5 MG TABLET PO SCH (13:00)
[2018-04-15] MEDS: DOCUSATE SODIUM 100 MG CAPSULE PO SCH ×2 (13:00→22:32)
[2018-04-15] MEDS: FEBUXOSTAT 40 MG PO SCH (13:16)
[2018-04-15] MEDS ORDERED: LORazepam 2 MG/ML VIAL IV PRN (20:35)
[2018-04-15] MEDS: ESCITALOPRAM 20 MG TABLET PO SCH (22:32)
[2018-04-15] MEDS: ATORVASTATIN 20 MG TABLET PO SCH (22:32)
[2018-04-15] MEDS: SENNOSIDES/DOCUSATE SODIUM 1 TAB TABLET PO SCH (22:32)
[2018-04-15] MEDS: FINASTERIDE 5 MG TABLET PO SCH (22:32)
[2018-04-15] MEDS: traZODone HCL 50 MG TABLET PO PRN (22:32)
[2018-04-15] MEDS: TAMSULOSIN 0.4 MG CAPSULE PO SCH (22:32)
[2018-04-15] MEDS: ASPIRIN 81 MG TAB.CHEW CHEWED SCH (22:32)
[2018-04-16] MEDS: IPRATROPIUM/ALBUTEROL 3 ML AMPUL.NEB NEB SCH ×3 (04:38→12:26)
[2018-04-16] MEDS: 0.9 % SODIUM CHLORIDE 10 ML SYRINGE IV SCH (05:50)
[2018-04-16 06:54] LABS: Mean Cell Volume 92.4 fL (80.0-100.0); Mean Corpuscular HGB Conc 32.4 g/dL (31.0-36.0); Platelet Count 204 K/mcL (140-440); RBC 4.74 M/mcL (4.50-5.90); Red Cell Distribution Width 14.3 % (11.5-14.5)
[2018-04-16 07:29] LABS: ALT/SGPT 14 U/l (0-40); Albumin 3.5 gm/dL (3.2-5.2); Albumin/Globulin Ratio 1.2 (1.0-2.3); Alkaline Phosphatase 53 U/L (39-117); Bilirubin,Direct < 0.2 mg/dL (0.0-0.3); Blood Urea Nitrogen 20 mg/dl (8-23); Gamma Glutamyl Transpeptidase 16 U/L (8-61); Uric Acid 7.2 mg/dL (2.5-8.0)
[2018-04-16 07:53] LABS: Eosinophils % (Manual) 3 % (0-7); Lymphocytes % 30 % (15-49); Monocytes % (Manual) 9 % (1-12); Platelet Estimate NORMAL (NORMAL); RBC Morphology NORMAL (NORMAL); Segmented Neutrophils % 58 % (38-78)
[2018-04-16] MEDS: INSULIN LISPRO 1 UNIT/0.01 ML UNIT SQ SCH ×2 (08:00→12:04)
[2018-04-16] MEDS: BUDESONIDE 0.5 MG/2 ML AMPUL.NEB NEB SCH (09:00)
--- NOTE | 2018-04-16 09:34 | Discharge Summary ---
Medical - DS: Prov Patient information: Note initiated : 04/16/18 at 9:31 am Service Date, if different from initiated Date: [] Patient: Pradeep Zamorano 72 y/o M admitted on 04/13/18 for Short of breath. Chief Complaint: [] Date of admission: 04/13/18 10:12 Discharge date: 04/16/18 Primary care physician: Miguel Martinez Consults: 04/13/18 Consult to Physician [CONS] Stat Comment: Consulting Provider: Pepe Santizo Reason For Exam: Physician to Consult Medical - DS: Meds - Discharge Medications Prescriptions: LORazepam [Ativan] 0.25 mg PO DAILY #14 tab Active and Home Medications: Home Medications Aspirin 81 mg CHEWED HS 08/04/15 [History Confirmed 04/13/18 Last Taken 04/12/18] Atorvastatin [Lipitor] 10 mg PO HS 08/04/15 [History Confirmed 04/13/18 Last Taken 04/12/18] Carvedilol [Coreg] 25 mg PO BIDCC 08/04/15 [History Confirmed 04/13/18 Last Taken 04/12/18] Escitalopram [Lexapro] 40 mg PO HS 08/04/15 [History Confirmed 04/13/18 Last Taken 04/12/18] Febuxostat [Uloric] 40 mg PO DAILY 08/04/15 [History Confirmed 04/13/18 Last Taken 04/12/18] Finasteride [Proscar] 5 mg PO HS 08/04/15 [History Confirmed 04/13/18 Last Taken 04/12/18] Levothyroxine [Synthroid] 50 mcg PO QAMAC 08/04/15 [History Confirmed 04/13/18 Last Taken 04/12/18] Losartan [Cozaar] 50 mg PO DAILY 08/04/15 [History Confirmed 04/13/18 Last Taken 04/12/18] Tamsulosin [Flomax] 0.4 mg PO HS 08/04/15 [History Confirmed 04/13/18 Last Taken 04/12/18] Spironolactone [Aldactone] 25 mg PO ONCE 01/16/17 [History Confirmed 04/13/18 Last Taken 04/12/18] Torsemide [Demadex] 20 mg PO DAILY 01/16/17 [History Confirmed 04/13/18 Last Taken 04/12/18] sitaGLIPtin [Januvia] 100 mg PO ONCE 04/13/18 [History Confirmed 04/13/18 Last Taken 04/12/18] LORazepam [Ativan] 0.25 mg PO DAILY #14 tab 04/16/18 [Rx Last Taken Unknown] Medical - DS: Hosp Hospital course: Discharge diagnosis * Acute hypoxic respiratory failure-likely OHS/KEVEN. CTA negative. continue home oxygen to keep sats over 92% .scheduled outpatient pulmonology follow- up/sleep study * Acute kidney injury. Creatinine 1.6 ->1.3->1.2 * History of CAD-continue statin/beta-arvin/ARB/aspirin-chamber enlargement noted but normal EF * History of gout managed on Uloric * Anxiety disorder continue escitalopram. Improved * Hypertension-continue spironolactone/losartan/Coreg * Hyperlipidemia-continue statin * Obstructive sleep apnea-patient did not tolerate CPAP in the past due to claustrophobia even though patient has machine for last 15 years. Will need outpatient pulmonary follow-up/repeat sleep study. Appointment scheduled * Hypothyroidism-continue thyroxine * History of BPH-managed on tamsulosin/finasteride * DM type II-sitagliptin/prandial insulin Brief hospital course Mr. Zamorano is a 72 year old M with history of obesity hypoventilation syndrome/sleep apnea not on CPAP, history of hypertension, anxiety depression who presents to the ER with worsening shortness of breath associated with anxiety attack that has progressed over the last 12 hours. This morning patient could not breathe prompting him to come to ER. Patient symptoms has been ongoing over the last few months with progressive dyspnea and decreased functionality. His 3 years ago and ever since he has had frequent episodes of anxiety depression. He has gained over 50 pounds since his 's . He denies recent URI symptoms/this, sick contacts or travel. He said he is unable to take a deep breath however denies pleuritic chest pain lightheadedness or dizziness. He had a AAA repair at [place] by Dr. Victor Manuel Dutton few months ago. He follows up with PCP Brennon Neal Initial workup in the ER was consistent with hypoxia with oxygen saturation at 71% and was started on oxygen. In light of elevated creatinine VQ scan was performed to rule out PE at [place] which was negative. Chest imaging was unremarkable. Patient started on breathing treatment/supplemental oxygen. Hospitalist service was consulted in light of hypoxic respiratory failure. At the time of evaluation patient is anxious. He was able to endorse history as above. He denies bloody stools large joint pain endorses lower extremity swelling. He complains of effort intolerance. He recently had a stress test at [place]. 04/14-patient doing better. CT angiogram chest in a.m. Creatinine down to 1.3. Much improved anxiety. Sats93% on 2 L oxygen. Able to ambulate. Tolerating diet. Discussed echo finding with multichamber enlargement/dilatation but normal EF. Right ventricle pressures could not be assessed. Also discussed about using CPAP. RT to evaluate nasal trumpet/pillow for better delivery and improve compliance. No other concerns expressed by nursing staff. If negative CTA will DC anticoagulation 04/15-CT angiogram negative. Basilar atelectasis. Persistent hypoxia requiring 2 L oxygen likely from obesity hypoventilation/sleep apnea. ABG 7.42/48/56. Will need outpatient sleep study/pulmonology follow-up. Anxiety much improved on as needed benzodiazepine. Discontinue full dose anti-coagulation. Counseled on weight reduction. Anticipate discharge in 24 hours 04/16-patient doing well. No overnight events. Anxiety much improved. On 2 L oxygen. Exercise oximetry today. Discharging with advised to follow-up with pulmonology/outpatient sleep study for CPAP evaluation. Also advised to continue working on weight loss program/regular exercise and dietary interventio n Detailed discharge instruction as below Discharge diagnosis: . - Time Spent with Patient Total time spent providing and/or coordinating discharge services: Greater than 30 minutes Medical - DS: Exam - Constitutional Vitals: Vital Signs Temp Pulse Pulse Resp BP BP BP 04/16/18 02:50 97.9 F 20 147/64 04/16/18 01:04 04/15/18 23:26 04/15/18 22:00 57 L 04/15/18 20:00 97.2 F 20 123/58 04/15/18 16:00 97.9 F 65 20 133/73 04/15/18 15:03 63 16 04/15/18 12:00 98.2 F 20 137/93 04/15/18 11:54 98.2 F 20 137/93 04/15/18 11:21 61 16 Pulse Ox 04/16/18 02:50 88 L 04/16/18 01:04 82 L 04/15/18 23:26 86 L 04/15/18 22:00 94 04/15/18 20:00 94 04/15/18 16:00 95 04/15/18 15:03 04/15/18 12:00 94 04/15/18 11:54 94 04/15/18 11:21 Intake and Output 04/15/18 04/16/18 04/16/18 21:59 05:59 13:59 Intake Total 540 700 Output Total 1200 950 Balance -660 -250 Intake: Oral 540 700 Output: Urine Catheter Amount 450 Void Amount 1200 500 Other: Meal Dinner Percent of Meal Consumed 100% Feeding Ability Assist with Tray Set Up Urine Appearance Clear Urine Color Bright Yellow Bright Yellow Urine Odor Strong Stool Size Moderate Stool Color Brown Stool Consistency Formed # Bowel Movements 1 Weight 322 lb 14.4 oz Medical - DS: Data Labs on day of discharge: Labs from last 24 hours 04/16/18 04/16/18 03:08 03:08 WBC 4.7 RBC 4.74 Hgb 14.2 Hct 43.8 MCV 92.4 MCH 29.9 MCHC 32.4 RDW 14.3 Plt Count 204 MPV 8.2 Total Counted 100 Seg Neutrophils % 58 Band Neutrophils % Not Reportable Lymphocytes % 30 Monocytes % (Manual) 9 Eosinophils % (Manual) 3 Platelet Estimate Normal RBC Morphology Normal Sodium 141 Potassium 3.6 Chloride 101 Carbon Dioxide 27 Anion Gap 13.0 BUN 20 Creatinine 1.2 GFR Calculation 60 Glucose 115 H Uric Acid 7.2 Calcium 9.2 Phosphorus 3.2 Magnesium 1.9 Total Bilirubin 0.7 Direct Bilirubin < 0.2 GGT 16 AST 14 ALT 14 Alkaline Phosphatase 53 Lactate Dehydrogenase 196 Total Protein 6.5 Albumin 3.5 Globulin 3.0 Albumin/Globulin Ratio 1.2 Triglycerides 118 Medical - DS: A/P - Patient/Caregiver Discharge Instructions Activity: increase activity as tolerated Diet: Regular Diet Additional Instructions: Follow-up PCP in 5 days With pulmonology as scheduled RT to perform oximetry and schedule home oxygen to keep sats over 92 Outpatient sleep study Continue aggressive bowel regimen to prevent constipation Continue fall precautions daily weights measurements and take additional 20 mg torsemide for 3 days if weight gain over 4 pounds over baseline or worsening shortness of breath and call primary care physician if inadequate response to Lasix Return to ER if worsening fever chills shortness of breath, diarrhea, bleeding Review risk and side effect profile of benzodiazepine. Regular use may lead to dependency and withdrawal anxiety. Please use only in the event of a panic attack Continue diet and activity as advised Discussed importance of medication adherence Please review medication list with patient prior to discharge Please schedule follow-up with PCP/Providers prior to discharge and provide printouts Prescriptions: LORazepam [Ativan] 0.25 mg PO DAILY #14 tab - Follow up Plan Follow up with: Brennon Neal DO [Physician] - 04/18/18 1:30 pm (Please check in at 1:15) Brandon Aguilar MD [Physician] - (Dr. Aguilar's office will contact you to schedule an appointment and sleep study after reviewing your chart. If you do not hear from them within 1 week please call .) Disposition: Home, Self-Care Prognosis: Fair Rehab Potential: Fair I certify that the patient requires SNF services: No Overall status at discharge: patient is progressing back to baseline Medical - DS: Qual - VTE Deep Vein Thrombosis/Pulmonary Embolism Present on Admission: No
[2018-04-16] MEDS: DOCUSATE SODIUM 100 MG CAPSULE PO SCH (10:18)
[2018-04-16] MEDS: TORSEMIDE 10 MG TABLET PO SCH (10:18)
[2018-04-16] MEDS: SPIRONOLACTONE 25 MG TABLET PO SCH (10:18)
[2018-04-16] MEDS: CARVEDILOL 12.5 MG TABLET PO SCH (10:19)
[2018-04-16] MEDS: LEVOTHYROXINE 50 MCG TABLET PO SCH (10:19)
[2018-04-16] MEDS: LORazepam 0.5 MG TABLET PO SCH (10:19)
[2018-04-16] MEDS: LOSARTAN 50 MG TABLET PO SCH (10:20)
[2018-04-16] MEDS: sitaGLIPtin 100 MG TABLET PO SCH (10:23)
[2018-04-16] MEDS: MULTIVIT,THER IRON,CA,FA & MIN 1 TABLET PO SCH (10:23)
== END 2018-04-16 14:10 | disposition home or self-care (01) | DRG 189 ==
LOC: ED 03:31 → ICU 10:12
PROVIDERS: ADMIT Internal Medicine; ATTEND Internal Medicine

== ENCOUNTER 2018-12-16 07:50 | Observation (INO) ==
--- NOTE | 2018-12-16 08:05 | Emergency Department Note ---
SOB HPI - General Chief Complaint: Shortness of Breath/Dyspnea Stated Complaint: Shortness of Breath, Chills Time Seen by Provider: 12/16/18 07:57 Source: patient, EMS Mode of arrival: EMS Limitations: no limitations - History of Present Illness This 73-year-old male comes emergency room by EMS after feeling quite short of breath during the night as well as having some chills, onset around midnight. He was so cold that he put on a jacket, blankets and a heater. He still was unable to sleep. He also has been experiencing cramps in his abdomen with diarrhea. He had about 4-5 episodes during the night. None yesterday. He has not recently eaten any leftovers but he did eat out a [employer] yesterday. No recent antibiotics. Did have some sweatiness this morning. Chart review includes a history of hypoxia and acute on chronic respiratory insufficiency/failure. Has home oxygen which he uses on a as needed basis. REVIEW OF SYSTEMS: Denies chest pain, cough, wheezing. Abdominal crampiness is present. No dysuria. Has some frequency but he admits that it is related to the torsemide. No back pain No headaches. Little weakness and a little lightheadedness. Some chronic anxiety for which she takes buspirone. Denies depression. - Related Data Home Medications Medication Instructions Recorded Confirmed Aspirin 81 mg CHEWED HS 08/04/15 05/21/18 Atorvastatin [Lipitor] 10 mg PO HS 08/04/15 05/21/18 Carvedilol [Coreg] 25 mg PO BIDCC 08/04/15 05/21/18 Escitalopram [Lexapro] 40 mg PO HS 08/04/15 05/21/18 Febuxostat [Uloric] 40 mg PO DAILY 08/04/15 05/21/18 Finasteride [Proscar] 5 mg PO HS 08/04/15 05/21/18 Levothyroxine [Synthroid] 50 mcg PO QAMAC 08/04/15 05/21/18 Losartan [Cozaar] 50 mg PO DAILY 08/04/15 05/21/18 Tamsulosin [Flomax] 0.4 mg PO HS 08/04/15 05/21/18 Spironolactone [Aldactone] 25 mg PO ONCE 01/16/17 05/21/18 Torsemide [Demadex] 20 mg PO DAILY 01/16/17 05/21/18 sitaGLIPtin [Januvia] 100 mg PO ONCE 04/13/18 05/21/18 buspirone 7.5 mg tablet 7.5 mg PO BID 05/21/18 05/21/18 Previous Rx's Medication Instructions Recorded zolpidem 5 mg tablet 5 mg PO QHS PRN #2 tab 05/21/18 Allergies Allergy/AdvReac Type Severity Reaction Status Date / Time chlortetracycline Allergy Mild Hives Verified 08/24/18 21:05 [Chlortetracycline] Past Medical History - Past Medical History [facility] Narrative: Medical History (Last Updated 12/16/18 @ 08:04 by Blaine Tipton DO) Morbid obesity (Chronic) CAD (coronary artery disease) (Chronic) DMII (diabetes mellitus, type 2) (Chronic) Obstructive sleep apnea (Chronic) Deep vein thrombosis (Chronic) Mild basilar atelectasis of both lungs (Chronic) Hypoventilation syndrome (Chronic) BPH (benign prostatic hyperplasia) (Chronic) Hypothyroidism (Chronic) Hyperlipidemia (Chronic) Hypertension (Chronic) Anxiety (Chronic) Gout (Chronic) Acute and chronic respiratory failure with hypoxia (Resolved) Acute exacerbation of chronic obstructive airways disease (Resolved) Community acquired pneumonia (Resolved) Hypoxia (Resolved) Acute respiratory failure with hypoxia (Resolved) Decreased functional mobility (Chronic) Swelling of lower extremity (Chronic) Joint pain (Chronic) Accidental drug ingestion (Resolved) Acute kidney injury (Resolved) Drug overdose (Resolved) Dyspnea (Resolved) Shortness of breath (Resolved) Past Surgical History (Last Reviewed 05/21/18 @ 15:22 by Brandon Aguilar MD) History of AAA (abdominal aortic aneurysm) repair (Chronic) Hx of total hip arthroplasty (Chronic) Hx of total hip arthroplasty (Chronic) Family History (Last Updated 12/16/18 @ 08:54 by Blaine Tipton DO) Mother Breast cancer Laryngeal cancer Father Heart disease Medical history: Reports: CAD (coronary artery disease), DM, hyperlipidemia, hypertension, thyroid disease. Denies: atrial fibrillation, CHF, chronic anticoagulation, chronic narcotics, CVA, DVT, myocardial infarction, KEVEN, TIA Psychiatric history: Reports: anxiety, depression (Denies today - 12/16/2018) Surgical history ED: Reports: cataract, herniorrhaphy - Social History smoking status: Former smoker Alcohol use: Reports: None Drug use: Reports: none. Denies: marijuana Physical Exam Limitations: no limitations General appearance: alert, in no apparent distress Head: atraumatic, normocephalic Eye: Present: normal appearance, PERRL, EOMI. Absent: scleral icterus, conjunctival injection ENT: Present: mucous membranes dry (Quite dry), other Neck: Present: trachea midline. Absent: lymphadenopathy, thyromegaly Chest: Present: symmetric chest wall rise Respiratory: Present: normal lung sounds bilaterally. Absent: respiratory distress, wheezes, stridor, accessory muscle use, prolonged expiratory phase Cardiovascular: Present: regular rate, normal rhythm, other (Frequent quadrigeminy present.). Absent: systolic murmur, diastolic murmur Abdominal: Present: soft, other (Morbidly large domed abdomen. Umbilical hernia scar healed and present.). Absent: distention, tenderness, guarding, rebound, rigidity, organomegaly, mass Extremities: Present: pretibial edema (Trace pitting bilateral). Absent: pedal edema, calf tenderness Neurological: Present: alert, oriented X3 Psychiatric: Present: normal affect, normal mood Skin: Present: warm, dry Course Vital Signs Temperature 100.3 F H 12/16/18 07:51 Pulse Rate 104 H 12/16/18 07:51 Respiratory Rate 26 H 12/16/18 07:51 Pulse Oximetry (%) 93 12/16/18 07:51 Temperature 100.3 F H 12/16/18 07:51 Pulse Rate 99 H 12/16/18 08:30 Respiratory Rate 20 12/16/18 08:30 Blood Pressure 167/115 12/16/18 08:30 Pulse Oximetry (%) 94 12/16/18 08:30 Shortness of Breath/Dyspnea - [facility] Narrative Medical decision making narrative: It was 7 AM - patient reviewed and examined. Increasing shortness of breath during the night with chills and then also some diarrhea. Will do multiple labs, chest x-ray, EKG. Meets several of the sepsis criteria so we will go ahead with procalcitonin, lactic acid, blood cultures. 8:49 AM - chest x-ray reading: Minor bibasilar atelectasis Disposition Pt seen by DRAIN TECHNICIAN/PA only: No Clinical Impression: Shortness of breath Diarrhea Qualifiers: Diarrhea type: unspecified type Qualified Code(s): R19.7 - Diarrhea, unspecified Abdominal pain Qualifiers: Abdominal location: generalized Qualified Code(s): R10.84 - Generalized abdominal pain Summary: See "MEDICAL DECISION MAKING" above. Because of change in shift, work-up will be reviewed and evaluated by Dr. Agrawal who will do the final disposition. Disposition: Still a Patient Referrals: Brennon Neal, [Primary Care Provider] -
--- NOTE | 2018-12-16 08:47 | XRay Report ---
CLINICAL INFORMATION: dyspnea COMPARISON: 04/13/2018 FINDINGS: Borderline cardiomegaly is unchanged. Mediastinum and pulmonary vessels are normal. There is minor bibasilar atelectasis - as previously seen. No infiltrates no effusions IMPRESSION: Minor bibasilar atelectasis Interpreted and Authenticated by: Victor Manuel Ramirez 12/16/18
[2018-12-16] MEDS ORDERED: ACETAMINOPHEN 1,000 MG/100 ML BOTTLE IV ONE (09:08)
[2018-12-16 09:35] LABS: Basophils # (Auto) 0 K/mcL (0.0-0.3); Basophils % (Auto) 0 % (0.0-2.0); Eosinophils # (Auto) 0 K/mcL (0.0-0.7); Eosinophils % (Auto) 0.6 % (0.0-7.0); Granulocytes % (Auto) 94.9 % (38.0-78.0); Hematocrit 48.6 % (41.0-55.0); Hemoglobin 16.3 g/dL (13.5-16.5); Lymphocytes # (Auto) 0.1 K/mcL (1.5-4.8); Lymphocytes % (Auto) 1.8 % (15.5-49.0); Mean Cell Volume 93.1 fL (80.0-100.0); Mean Corpuscular HGB Conc 33.5 g/dL (31.0-36.0); Mean Platelet Volume 7.3 fL (7.4-10.4); Monocytes # (Auto) 0.2 K/mcL (0.1-0.9); Monocytes % (Auto) 2.7 % (1.0-12.0); Platelet Count 194 K/mcL (140-440); RBC 5.22 M/mcL (4.50-5.90); Red Cell Distribution Width 14.3 % (11.5-14.5); WBC 6.9 K/mcL (4.5-11.0)
[2018-12-16 09:54] LABS: ABG Methemoglobin 0.1 % (0.4-1.5); Total Hemoglobin 15.8 gm/dL (13.5-16.5); VBG Base Excess 1.1 (-2.0-2.0); VBG HCO3 27.4 mmol/L (24.0-28.0); VBG Oxygen Saturation 75.3 % (40.0-70.0); VBG PCO2 49.5 mmHg (41.0-51.0); VBG PH 7.36 U (7.32-7.42); VBG PO2 44 mmHg (25-40); VBG Total CO2 28.9 mmol/L (25.0-29.0)
[2018-12-16 09:56] LABS: proBNP 58.7 pg/ml (0-125)
[2018-12-16 09:57] LABS: ALT/SGPT 18 U/l (0-40); AST/SGOT 15 U/l (0-37); Albumin 4.4 gm/dL (3.2-5.2); Albumin/Globulin Ratio 2.1 (1.0-2.3); Alkaline Phosphatase 59 U/L (39-117); Bilirubin,Total 1.5 mg/dL (0.0-1.0); Blood Urea Nitrogen 24 mg/dl (8-23); Calcium 9.3 mg/dl (8.6-10.4); Carbon Dioxide 26 mmol/L (22-30); Chloride 102 mmol/L (96-108); Globulin 2.1 gm/dL (2.2-3.7); Glomerular Filtration Rate 60; Glucose 228 mg/dL (70-105)
[2018-12-16] MEDS ORDERED: MAGNESIUM SULFATE 2 GM/50 ML BAG IV ONE (10:08)
[2018-12-16] MEDS ORDERED: IPRATROPIUM/ALBUTEROL 3 ML AMPUL.NEB NEB ONE (10:08)
--- NOTE | 2018-12-16 10:19 | Emergency Department Note ---
General Adult HPI - General Chief complaint: Shortness of Breath/Dyspnea Stated complaint: Shortness of Breath, Chills Time Seen by Provider: 12/16/18 07:57 Source: patient, EMS Mode of arrival: EMS Limitations: no limitations - History of Present Illness HPI Narrative: Received patient in checkout from Dr. Tipton. Reviewed his notes and discussed with the patient as well. Patient reports nausea and diarrhea since yesterday. Febrile. He did eat at a [employer] food restaurant yesterday and that seems to be the triggering event. Mildly short of breath with end expiratory wheeze. On home oxygen as needed. Feeling very weak and unable to care for himself - Related Data Home Medications Medication Instructions Recorded Confirmed Aspirin 81 mg CHEWED HS 08/04/15 12/16/18 Atorvastatin [Lipitor] 10 mg PO HS 08/04/15 12/16/18 Carvedilol [Coreg] 25 mg PO BIDCC 08/04/15 12/16/18 Escitalopram [Lexapro] 40 mg PO HS 08/04/15 12/16/18 Finasteride [Proscar] 5 mg PO HS 08/04/15 12/16/18 Levothyroxine [Synthroid] 50 mcg PO QAMAC 08/04/15 12/16/18 Losartan [Cozaar] 50 mg PO DAILY 08/04/15 12/16/18 Tamsulosin [Flomax] 0.4 mg PO HS 08/04/15 12/16/18 Spironolactone [Aldactone] 25 mg PO ONCE 01/16/17 12/16/18 Torsemide [Demadex] 20 mg PO BID 01/16/17 12/16/18 sitaGLIPtin [Januvia] 100 mg PO ONCE 04/13/18 12/16/18 buspirone 7.5 mg tablet 5 - 10 mg PO BID 05/21/18 12/16/18 Allergies Allergy/AdvReac Type Severity Reaction Status Date / Time chlortetracycline Allergy Mild Hives Verified 08/24/18 21:05 [Chlortetracycline] Review of Systems All systems ED: reviewed and negative except as stated. Past Medical History - Past Medical History Attestation: Yes: The following information was validated with the patient. Medical history: Reports: CAD (coronary artery disease), DM, hyperlipidemia, hypertension, thyroid disease. Denies: atrial fibrillation, CHF, chronic anticoagulation, chronic narcotics, CVA, DVT, myocardial infarction, KEVEN, TIA Psychiatric history: Reports: anxiety, depression (Denies today - 12/16/2018) Surgical history ED: Reports: cataract, herniorrhaphy - Social History smoking status: Former smoker Alcohol use: Reports: None Drug use: Reports: none. Denies: marijuana Physical Exam I reexamined his belly and he has diffuse tenderness. Lungs are basically clear to auscultation bilaterally except that he has a significant end expiratory wheeze and pursed lip breathing. He is on 2 L nasal cannula to keep sats at 92% Limitations: no limitations General appearance: alert, in no apparent distress Course Vital Signs Temperature 100.3 F H 12/16/18 07:51 Pulse Rate 104 H 12/16/18 07:51 Respiratory Rate 26 H 12/16/18 07:51 Pulse Oximetry (%) 93 12/16/18 07:51 Temperature 101.6 F H 12/16/18 09:53 Pulse Rate 84 12/16/18 14:13 Respiratory Rate 19 12/16/18 14:13 Blood Pressure 118/57 12/16/18 14:00 Pulse Oximetry (%) 88 L 12/16/18 14:13 Medical Decision Making - Lab Data Lab results reviewed: Yes I reviewed the patient's lab results. Result diagrams: 12/16/18 Unknown 12/16/18 Unknown Lab Results 12/16/18 12/16/18 12/16/18 Range/Units 08:55 09:18 13:07 WBC (4.5-11.0) K/mcL RBC (4.50-5.90) M/mcL Hgb (13.5-16.5) g/dL Hct (41.0-55.0) % MCV (80.0-100.0) fL MCH (26.0-34.0) pg MCHC (31.0-36.0) g/dL RDW (11.5-14.5) % Plt Count (140-440) K/mcL MPV (7.4-10.4) fL Gran % (38.0-78.0) % Lymph % (Auto) (15.5-49.0) % Andrews % (Auto) (1.0-12.0) % Eos % (Auto) (0.0-7.0) % Baso % (Auto) (0.0-2.0) % Gran # (1.8-8.0) K/mcL Lymph # (Auto) (1.5-4.8) K/mcL Andrews # (Auto) (0.1-0.9) K/mcL Eos # (Auto) (0.0-0.7) K/mcL Baso # (Auto) (0.0-0.3) K/mcL Total Counted 100 Seg Neutrophils % 78 (38-78) % Band Neutrophils % 15 H (0-10) % Lymphocytes % 2 L (15-49) % Monocytes % (Manual) 3 (1-12) % Eosinophils % (Manual) 2 (0-7) % Platelet Estimate Normal (NORMAL) RBC Morphology Normal (NORMAL) ABG Methemoglobin 0.1 L (0.4-1.5) % VBG pH 7.36 (7.32-7.42) U VBG pCO2 49.5 (41.0-51.0) mmHg VBG pO2 44 H (25-40) mmHg VBG HCO3 27.4 (24.0-28.0) mmol/L VBG Total CO2 28.9 (25.0-29.0) mmol/L VBG O2 Saturation 75.3 H (40.0-70.0) % VBG Base Excess 1.1 (-2.0-2.0) VBG Lactic Acid 3.6 H (0.5-2.0) mmol/L Carboxyhemoglobin 3.2 H (0.0-1.5) % THgb Total Hemoglobin 15.8 (13.5-16.5) gm/dL O2 Delivery Level Not Reportable Sodium (133-145) mmol/L Potassium (3.3-5.1) mmol/L Chloride (96-108) mmol/L Carbon Dioxide (22-30) mmol/L Anion Gap (8-16) BUN (8-23) mg/dl Creatinine (0.7-1.2) mg/dl GFR Calculation Glucose (70-105) mg/dL Calcium (8.6-10.4) mg/dl Total Bilirubin (0.0-1.0) mg/dL AST (0-37) U/l ALT (0-40) U/l Alkaline Phosphatase (39-117) U/L Troponin T (0-0.03) ng/ml NT-Pro-B Natriuret Pep (0-125) pg/ml Total Protein (5.9-8.4) gm/dL Albumin (3.2-5.2) gm/dL Globulin (2.2-3.7) gm/dL Albumin/Globulin Ratio (1.0-2.3) Procalcitonin (<0.10) ng/mL 12/16/18 12/16/18 12/16/18 Range/Units Unknown Unknown Unknown WBC 6.9 (4.5-11.0) K/mcL RBC 5.22 (4.50-5.90) M/mcL Hgb 16.3 (13.5-16.5) g/dL Hct 48.6 (41.0-55.0) % MCV 93.1 (80.0-100.0) fL MCH 31.2 (26.0-34.0) pg MCHC 33.5 (31.0-36.0) g/dL RDW 14.3 (11.5-14.5) % Plt Count 194 (140-440) K/mcL MPV 7.3 L (7.4-10.4) fL Gran % 94.9 H (38.0-78.0) % Lymph % (Auto) 1.8 L (15.5-49.0) % Andrews % (Auto) 2.7 (1.0-12.0) % Eos % (Auto) 0.6 (0.0-7.0) % Baso % (Auto) 0 (0.0-2.0) % Gran # 6.5 (1.8-8.0) K/mcL Lymph # (Auto) 0.1 L (1.5-4.8) K/mcL Andrews # (Auto) 0.2 (0.1-0.9) K/mcL Eos # (Auto) 0 (0.0-0.7) K/mcL Baso # (Auto) 0 (0.0-0.3) K/mcL Total Counted Seg Neutrophils % (38-78) % Band Neutrophils % (0-10) % Lymphocytes % (15-49) % Monocytes % (Manual) (1-12) % Eosinophils % (Manual) (0-7) % Platelet Estimate (NORMAL) RBC Morphology (NORMAL) ABG Methemoglobin (0.4-1.5) % VBG pH (7.32-7.42) U VBG pCO2 (41.0-51.0) mmHg VBG pO2 (25-40) mmHg VBG HCO3 (24.0-28.0) mmol/L VBG Total CO2 (25.0-29.0) mmol/L VBG O2 Saturation (40.0-70.0) % VBG Base Excess (-2.0-2.0) VBG Lactic Acid (0.5-2.0) mmol/L Carboxyhemoglobin (0.0-1.5) % THgb Total Hemoglobin (13.5-16.5) gm/dL O2 Delivery Level Sodium 143 (133-145) mmol/L Potassium 4.7 (3.3-5.1) mmol/L Chloride 102 (96-108) mmol/L Carbon Dioxide 26 (22-30) mmol/L Anion Gap 15.0 (8-16) BUN 24 H (8-23) mg/dl Creatinine 1.2 (0.7-1.2) mg/dl GFR Calculation 60 Glucose 228 H (70-105) mg/dL Calcium 9.3 (8.6-10.4) mg/dl Total Bilirubin 1.5 H (0.0-1.0) mg/dL AST 15 (0-37) U/l ALT 18 (0-40) U/l Alkaline Phosphatase 59 (39-117) U/L Troponin T (0-0.03) ng/ml NT-Pro-B Natriuret Pep 58.7 (0-125) pg/ml Total Protein 6.5 (5.9-8.4) gm/dL Albumin 4.4 (3.2-5.2) gm/dL Globulin 2.1 L (2.2-3.7) gm/dL Albumin/Globulin Ratio 2.1 (1.0-2.3) Procalcitonin 0.20 (<0.10) ng/mL 12/16/18 Range/Units Unknown WBC (4.5-11.0) K/mcL RBC (4.50-5.90) M/mcL Hgb (13.5-16.5) g/dL Hct (41.0-55.0) % MCV (80.0-100.0) fL MCH (26.0-34.0) pg MCHC (31.0-36.0) g/dL RDW (11.5-14.5) % Plt Count (140-440) K/mcL MPV (7.4-10.4) fL Gran % (38.0-78.0) % Lymph % (Auto) (15.5-49.0) % Andrews % (Auto) (1.0-12.0) % Eos % (Auto) (0.0-7.0) % Baso % (Auto) (0.0-2.0) % Gran # (1.8-8.0) K/mcL Lymph # (Auto) (1.5-4.8) K/mcL Andrews # (Auto) (0.1-0.9) K/mcL Eos # (Auto) (0.0-0.7) K/mcL Baso # (Auto) (0.0-0.3) K/mcL Total Counted Seg Neutrophils % (38-78) % Band Neutrophils % (0-10) % Lymphocytes % (15-49) % Monocytes % (Manual) (1-12) % Eosinophils % (Manual) (0-7) % Platelet Estimate (NORMAL) RBC Morphology (NORMAL) ABG Methemoglobin (0.4-1.5) % VBG pH (7.32-7.42) U VBG pCO2 (41.0-51.0) mmHg VBG pO2 (25-40) mmHg VBG HCO3 (24.0-28.0) mmol/L VBG Total CO2 (25.0-29.0) mmol/L VBG O2 Saturation (40.0-70.0) % VBG Base Excess (-2.0-2.0) VBG Lactic Acid (0.5-2.0) mmol/L Carboxyhemoglobin (0.0-1.5) % THgb Total Hemoglobin (13.5-16.5) gm/dL O2 Delivery Level Sodium (133-145) mmol/L Potassium (3.3-5.1) mmol/L Chloride (96-108) mmol/L Carbon Dioxide (22-30) mmol/L Anion Gap (8-16) BUN (8-23) mg/dl Creatinine (0.7-1.2) mg/dl GFR Calculation Glucose (70-105) mg/dL Calcium (8.6-10.4) mg/dl Total Bilirubin (0.0-1.0) mg/dL AST (0-37) U/l ALT (0-40) U/l Alkaline Phosphatase (39-117) U/L Troponin T < 0.01 (0-0.03) ng/ml NT-Pro-B Natriuret Pep (0-125) pg/ml Total Protein (5.9-8.4) gm/dL Albumin (3.2-5.2) gm/dL Globulin (2.2-3.7) gm/dL Albumin/Globulin Ratio (1.0-2.3) Procalcitonin (<0.10) ng/mL ABG shows pH 7.42 PO2 of 61 and PCO2 normal Urinalysis [id number] dipstick showed normal urine with specific gravity 1.010 - Radiology Data Radiology results reviewed: Yes I reviewed the patient's radiology results. X-ray of the abdomen showed collapsed bowel consistent with nausea vomiting diarrhea-i.e. enteritis of some kind - EKG Data EKG #1 EKG attestation: Yes I reviewed and interpreted this EKG., Yes There are no EKG findings of acute coronary syndrome, Yes This EKG will be read by paper inserter EKG results narrative: EKG shows a rate of 104 with sinus tachycardia and quadrigeminy-that is a PVC every fourth beat. Noted first-degree block Disposition Pt seen by [employer] FIELD COORDINATOR/PA only: No Clinical Impression: Shortness of breath, Food poisoning Diarrhea Qualifiers: Diarrhea type: unspecified type Qualified Code(s): R19.7 - Diarrhea, unspecified Fever Qualifiers: Fever type: unspecified Qualified Code(s): R50.9 - Fever, unspecified Summary: Getting IV fluids and oxygen here. Suspect perhaps flu so get flu swab. Treat fever with IV Tylenol. Labs pending. X-ray of the abdomen 2 view ordered. Magnesium ordered for quadrigeminy Differential diagnosis includes food poisoning versus influenza versus colitis/gastroenteritis from immunity acquired virus or parasite. Stool studies ordered. He does meet SIRS criteria so blood cultures were ordered After discussion with the patient agree that patient probably requires further inpatient observation and care especially in light of his hypoxia and fever. Discussed case with our hospitalist, Dr. Tomas. He will admit the patient for further care and evaluation Disposition: Xfer As Inpt ([facility]) Condition: Fair Referrals: Brennon Neal DO [Primary Care Provider] -
--- NOTE | 2018-12-16 10:52 | XRay Report ---
CLINICAL INFORMATION: Nausea and diarrhea COMPARISON: None. FINDINGS: The stomach is slightly distended with gas. The small bowel and colon are almost totally decompressed. No free air, soft tissue mass or organomegaly. No free air, soft tissue mass or organomegaly. IMPRESSION: Decompressed GI tract compatible with nausea/vomiting, poor oral intake and/or diarrhea. No evidence of GI tract obstruction. Consider viral gastroenteritis Interpreted and Authenticated by: Victor Manuel Ramirez 12/16/18
[2018-12-16 14:05] LABS: Band Neutrophils % 15 % (0-10); Eosinophils % (Manual) 2 % (0-7); Lymphocytes % 2 % (15-49); Monocytes % (Manual) 3 % (1-12); Platelet Estimate NORMAL (NORMAL); RBC Morphology NORMAL (NORMAL); Segmented Neutrophils % 78 % (38-78)
[2018-12-16] MEDS ORDERED: 0.9 % SODIUM CHLORIDE 1,000 ML IV ONE (14:07)
--- NOTE | 2018-12-16 14:15 | Internal Med History&Physical ---
Medical - H&P: HPI Patient information: Note initiated : 12/16/18 at 2:12 pm Service Date, if different from initiated Date: [] Patient: Pradeep Zamorano a 73 y/o M admitted on for Shortness of Breath, Chills. Chief Complaint: [] History of present illness: Mr. Zamorano is a 73 year old M Presents to the ED with nausea diarrhea fevers chills which started last night. Patient states that he felt fine waking up Saturday morning but after he was fine Saturday night he had taken out of the [employer] restaurant 8 about 730 and then about between 01/12/1930 started having nausea but no vomiting but had diarrhea and fever and chills. He says he had about 4 5 episodes of diarrhea and that initially expelled quite a bit of fluid and then decreased over repeated episodes. He has some crampy abdominal pain throughout but more so in the right lower quadrant. He also feels like he is short of breath but attributes this t o the GI upset and shallow breathing and being overweight. In the ED he is found to be febrile with tachycardia and tachypnea. He does use oxygen at home several times a month and at night occasionally. In the ED he was placed on 2 L of oxygen to maintain mid 90s. While I visited with him I put him on room air and he remained low 90s. He states he runs 90-92 at home sometimes he will drop into the mid to upper 80s. He does not carry a diagnosis of COPD does not have inhalers. He quit smoking 2007. Abdominal x-ray was done which showed decompressed GI track. No abnormalities. ABG was done which showed PaO2 correlating with sats no other abnormalities. Troponin which was negative and procalcitonin was low. Patient very weak felt unsafe to sent home where he lives alone and admission was requested. He denies coughing Also of note his lactate was 3.6. Review of Systems: Pertinent positives as above. Denies headache/fever/chills/vomiting/chest pain/cough many 10 point review of system reviewed negative Medical - H&P: PMH Medical history: Medical History (Last Updated 12/16/18 @ 08:04 by Blaine Tipton DO) Morbid obesity (Chronic) CAD (coronary artery disease) (Chronic) DMII (diabetes mellitus, type 2) (Chronic) Obstructive sleep apnea (Chronic) Deep vein thrombosis (Chronic) Mild basilar atelectasis of both lungs (Chronic) Hypoventilation syndrome (Chronic) BPH (benign prostatic hyperplasia) (Chronic) Hypothyroidism (Chronic) Hyperlipidemia (Chronic) Hypertension (Chronic) Anxiety (Chronic) Gout (Chronic) Acute and chronic respiratory failure with hypoxia (Resolved) Acute exacerbation of chronic obstructive airways disease (Resolved) Community acquired pneumonia (Resolved) Hypoxia (Resolved) Acute respiratory failure with hypoxia (Resolved) Decreased functional mobility (Chronic) Swelling of lower extremity (Chronic) Joint pain (Chronic) Accidental drug ingestion (Resolved) Acute kidney injury (Resolved) Drug overdose (Resolved) Dyspnea (Resolved) Shortness of breath (Resolved) Past Surgical History (Last Reviewed 05/21/18 @ 15:22 by Brandon Aguilar MD) History of AAA (abdominal aortic aneurysm) repair (Chronic) Hx of total hip arthroplasty (Chronic) Hx of total hip arthroplasty (Chronic) Family History (Last Updated 12/16/18 @ 08:54 by Blaine Tipton DO) Mother Breast cancer Laryngeal cancer Father Heart disease Social History (Last Updated 05/21/18 @ 15:31 by Brandon Aguilar MD) Patient quit smoking 2007 denies alcohol use and ambulates by himself and lives by himself Medical - H&P: Meds Home Medications Medication Instructions Recorded Confirmed Type Aspirin 81 mg CHEWED HS 08/04/15 12/16/18 History Atorvastatin [Lipitor] 10 mg PO HS 08/04/15 12/16/18 History Carvedilol [Coreg] 25 mg PO BIDCC 08/04/15 12/16/18 History Escitalopram [Lexapro] 40 mg PO HS 08/04/15 12/16/18 History Finasteride [Proscar] 5 mg PO HS 08/04/15 12/16/18 History Levothyroxine [Synthroid] 50 mcg PO QAMAC 08/04/15 12/16/18 History Losartan [Cozaar] 50 mg PO DAILY 08/04/15 12/16/18 History Tamsulosin [Flomax] 0.4 mg PO HS 08/04/15 12/16/18 History Spironolactone [Aldactone] 25 mg PO ONCE 01/16/17 12/16/18 History Torsemide [Demadex] 20 mg PO BID 01/16/17 12/16/18 History sitaGLIPtin [Januvia] 100 mg PO ONCE 04/13/18 12/16/18 History buspirone 7.5 mg tablet 5 - 10 mg PO BID 05/21/18 12/16/18 History Allergies Allergy/AdvReac Type Severity Reaction Status Date / Time chlortetracycline Allergy Mild Hives Verified 08/24/18 21:05 [Chlortetracycline] Medical - H&P: Exam - Constitutional Vitals: Temp Pulse Resp BP Pulse Ox 101.6 F H 85 27 H 111/46 94 12/16/18 09:53 12/16/18 12:46 12/16/18 12:46 12/16/18 12:30 12/16/18 12:46 Exam: General: Alert, Awake, No acute Distress, base Eyes/N/T: EOMI, PEERL, DMM Head/Neck: neck supple, normocephalic atraumatic CV: RRR, No murmurs, normal s1/s2 Pulm: Clear b/l, no wheezing/rhonchi/rales Abd: soft, mild TTP RLQ, +BS x4, 2 burnt Ext: no clubbing/cyanosis, 1+ b/l LE edema Neuro: Alert, no focal deficits, moves all extremities, CN 2-12 grossly intact, symmetrical strength b/l upper/lower, sensations intact b/l upper/lower Skin: warm/dry Medical - H&P: Reslt - Labs CBC & Chem 7: 12/16/18 Unknown 12/16/18 Unknown Labs: Short CBC 12/16/18 Range/Units Unknown WBC 6.9 (4.5-11.0) K/mcL Hgb 16.3 (13.5-16.5) g/dL Hct 48.6 (41.0-55.0) % Plt Count 194 (140-440) K/mcL BMP 12/16/18 Unknown Sodium 143 Potassium 4.7 Chloride 102 Carbon Dioxide 26 BUN 24 H Creatinine 1.2 Glucose 228 H Calcium 9.3 Cardiac Enzymes 12/16/18 Range/Units Unknown Troponin T < 0.01 (0-0.03) ng/ml Liver Function 12/16/18 Range/Units Unknown Total Bilirubin 1.5 H (0.0-1.0) mg/dL AST 15 (0-37) U/l ALT 18 (0-40) U/l Alkaline Phosphatase 59 (39-117) U/L Albumin 4.4 (3.2-5.2) gm/dL - ABG Interpretation ABG results: 12/16/18 09:18 ABG Methemoglobin 0.1 L VBG pH 7.36 VBG pCO2 49.5 VBG pO2 44 H VBG HCO3 27.4 VBG Total CO2 28.9 VBG O2 Saturation 75.3 H VBG Base Excess 1.1 - Impressions Abdominal x-ray unremarkable Medical - H&P: A/P - Narrative A/P Narrative: A: *Gastroenteritis: Culprit likely to be food from restaurant he had *SIRS 4/4 (febrile, tachycardic, tachypneic, bandemia) *Lactic acidosis: *dyspnea: 2/2 GI upset and shallow breathing. satting low 90's on room air (where he typically runs at home, 90-92) -CXR clear except for some atelectasis *DM: *Obesity: *KEVEN & Likely obesity hypoventilation syndrome: -uses prn O2 @home *CKD III: *HTN/HLD: *Anxiety/depression: *Hypothyroidism: *GERD: * P: -empiric abx given severity of illness -IVF's -stool studies -hold home torsemide today -cont home ASA/Statin -cont home BB/ARB -SSI, glip -IS hourly -ppx: lovenox full code
[2018-12-16] MEDS ORDERED: DEXTROSE 50% 50 ML VIAL IV PRN (15:14)
[2018-12-16] MEDS ORDERED: HYDROcodone/APAP 5/325MG TABLET PO PRN (15:14)
[2018-12-16] MEDS ORDERED: IPRATROPIUM/ALBUTEROL 3 ML AMPUL.NEB NEB PRN (15:14)
[2018-12-16] MEDS ORDERED: DEXTROSE 31 GM ORAL.SUSP PO PRN (15:14)
[2018-12-16] MEDS ORDERED: ONDANSETRON 4 MG/2 ML VIAL IV PRN (15:14)
[2018-12-16] MEDS: AZITHROMYCIN 500 MG in DEXTROSE 5% IN WATER 250 ML IV SCH (17:08)
[2018-12-16] MEDS: PROMETHAZINE 25 MG TABLET PO PRN (17:24)
[2018-12-16] MEDS: 0.9 % SODIUM CHLORIDE 1,000 ML IV SCH (17:38)
[2018-12-16] MEDS: INSULIN LISPRO 1 UNIT/0.01 ML UNIT SQ SCH ×2 (17:47→21:31)
[2018-12-16] MEDS: CARVEDILOL 12.5 MG TABLET PO SCH (17:48)
[2018-12-16] MEDS ORDERED: busPIRone 5 MG TABLET PO PRN (21:00)
[2018-12-16] MEDS ORDERED: TORSEMIDE 10 MG TABLET PO SCH (21:00)
[2018-12-16] MEDS: ATORVASTATIN 20 MG TABLET PO SCH (21:25)
[2018-12-16] MEDS: ASPIRIN 81 MG TAB.CHEW CHEWED SCH (21:25)
[2018-12-16] MEDS: FINASTERIDE 5 MG TABLET PO SCH (21:25)
[2018-12-16] MEDS: ESCITALOPRAM 20 MG TABLET PO SCH (21:25)
[2018-12-16] MEDS: TAMSULOSIN 0.4 MG CAPSULE PO SCH (21:26)
[2018-12-16] MEDS ORDERED: diphenhydrAMINE 25 MG CAPSULE PO PRN (22:04)
[2018-12-16] MEDS: 0.9 % SODIUM CHLORIDE 1,000 ML IV ONE (22:06)
[2018-12-16] MEDS: 0.9 % SODIUM CHLORIDE 10 ML SYRINGE IV SCH (22:07)
[2018-12-16] MEDS: MELATONIN 3 MG TABLET PO PRN (23:22)
[2018-12-16] MEDS ORDERED: diphenhydrAMINE 25 MG CAPSULE ONE (23:23)
[2018-12-17] MEDS: 0.9 % SODIUM CHLORIDE 1,000 ML IV ONE (00:39)
[2018-12-17] MEDS: 0.9 % SODIUM CHLORIDE 1,000 ML IV SCH (03:43)
[2018-12-17] MEDS: LEVOTHYROXINE 50 MCG TABLET PO SCH (07:10)
[2018-12-17 07:17] LABS: Hematocrit 39.7 % (41.0-55.0); Hemoglobin 13.3 g/dL (13.5-16.5); Mean Cell Volume 94.4 fL (80.0-100.0); Mean Corpuscular HGB Conc 33.5 g/dL (31.0-36.0); Mean Platelet Volume 7.3 fL (7.4-10.4); Platelet Count 164 K/mcL (140-440); RBC 4.21 M/mcL (4.50-5.90); Red Cell Distribution Width 14.9 % (11.5-14.5); WBC 5.1 K/mcL (4.5-11.0)
[2018-12-17] MEDS: 0.9 % SODIUM CHLORIDE 10 ML SYRINGE IV SCH ×3 (07:19→22:28)
[2018-12-17 07:34] LABS: ALT/SGPT 14 U/l (0-40); AST/SGOT 14 U/l (0-37); Albumin 3.2 gm/dL (3.2-5.2); Albumin/Globulin Ratio 1.5 (1.0-2.3); Alkaline Phosphatase 39 U/L (39-117); Bilirubin,Direct < 0.2 mg/dL (0.0-0.3); Bilirubin,Total 1.1 mg/dL (0.0-1.0); Blood Urea Nitrogen 19 mg/dl (8-23); Calcium 7.6 mg/dl (8.6-10.4); Carbon Dioxide 25 mmol/L (22-30); Chloride 107 mmol/L (96-108); Globulin 2.1 gm/dL (2.2-3.7); Glomerular Filtration Rate 54; Glucose 126 mg/dL (70-105); Lactate Dehydrogenase 165 U/L (94-250); Phosphorous 2.2 mg/dL (2.7-4.5); Triglycerides 109 mg/dl (<150); Uric Acid 8.8 mg/dL (2.5-8.0)
[2018-12-17] MEDS: INSULIN LISPRO 1 UNIT/0.01 ML UNIT SQ SCH ×4 (07:39→20:31)
--- NOTE | 2018-12-17 08:21 | Internal Med Progress Note ---
Medical - PN: Subj Patient information: Note initiated : 12/17/18 at 8:14 am Service Date, if different from initiated Date: [] Patient: Pradeep Zamorano a 73 y/o M admitted on 12/16/18 for Shortness of Breath, Chills. Chief Complaint: [] Interval history: Mr. Zamorano is a 73 year old M Presents to the ED with nausea diarrhea fevers chills which started last night. Patient states that he felt fine waking up Saturday morning but after he was fine Saturday night he had taken out of the [employer] restaurant 8 about 730 and then about between 01/12/1930 started having nausea but no vomiting but had diarrhea and fever and chills. He says he had about 4 5 episodes of diarrhea and that initially expelled quite a bit of fluid and then decreased over repeated episodes. He has some crampy abdominal pain throughout but more so in the right lower quadrant. He also feels like he is short of breath but attributes this to the GI upset and shallow breathing and being overweight. In the ED he is found to be febrile with tachycardia and tachypnea. He does use oxygen at home several times a month and at night occasionally. In the ED he was placed on 2 L of oxygen to maintain mid 90s. While I visited with him I put him on room air and he remained low 90s. He states he runs 90-92 at home sometimes he will drop into the mid to upper 80s. He does not carry a diagnosis of COPD does not have inhalers. He quit smoking 2007. Abdominal x-ray was done which showed decompressed GI track. No abnormalities. ABG was done which showed PaO2 correlating with sats no other abnormalities. Troponin which was negative and procalcitonin was low. Patient very weak felt unsafe to sent home where he lives alone and admission was requested. He denies coughing Also of note his lactate was 3.6. 12/17 Patient having diarrhea this morning. Little bit of nausea and headache. Otherwise no new complaints. C. difficile negative. Lactic acidosis resolved. Anemia resolved Review of Systems: denies fever/chills/vomiting/chest or abdominal pain/cough/dyspnea. Otherwise see above. - Constitutional Vitals: Vital Signs Temp Pulse Resp BP Pulse Ox 98.0 F 74 18 107/66 91 12/17/18 03:45 12/17/18 03:45 12/17/18 03:45 12/17/18 03:45 12/17/18 03:45 Period Temp Pulse Resp BP Sys/Hercules Pulse Ox Last 24 Hr 98.0 F-102.8 F 72-100 16-31 88-167/46-115 88-97 Intake and Output 12/16/18 12/17/18 12/17/18 21:59 05:59 13:59 Intake Total 2040 2650 Output Total 350 200 500 Balance 1690 2450 -500 Weight 148.325 kg Intake & Output: Intake & Output 12/16/18 12/17/18 12/17/18 21:59 05:59 13:59 Intake Total 2040 2650 Output Total 350 200 500 Balance 1690 2450 -500 Weight 148.325 kg Intake: IV 1000 2000 Sodium Chloride 0.9% 1,000 ml @ 1000 1000 125 mls/hr IV .Q8H LEXI Rx#: [id number] Sodium Chloride 0.9% 1,000 ml @ 1000 Wide Open IV BOLUS ONE Rx#: [id number] Oral 1040 650 Output: Void Amount 350 200 500 Other: Meal Dinner Breakfast Percent of Meal Consumed 100% 75% Feeding Ability Independent Urine Appearance Clear Urine Color Dark Yellow Stool Size Moderate Stool Consistency Liquid # Bowel Movements 2 Exam: General: Alert, Awake, No acute Distress, obese Eyes/N/T: EOMI, Head/Neck: neck supple, CV: RRR, No murmurs, Pulm: Clear b/l, no wheezing/rhonchi/rales Abd: soft, mild TTP RLQ, +BS x4, 2 burnt Ext: no clubbing/cyanosis, 1+ b/l LE edema Neuro: Alert, no focal deficits, moves all extremities, Skin: warm/dry Medical - PN: Obj Da - Labs CBC & Chem 7: 12/17/18 04:30 12/17/18 04:30 Labs: Abnormal Lab Results 12/17/18 12/17/18 12/16/18 04:30 04:30 Unknown RBC 4.21 L Hgb 13.3 L Hct 39.7 L RDW 14.9 H MPV 7.3 L Gran % Lymph % (Auto) Lymph # (Auto) Band Neutrophils % Lymphocytes % ABG Methemoglobin VBG pO2 VBG O2 Saturation VBG Lactic Acid Carboxyhemoglobin Anion Gap 7.0 L BUN 24 H Creatinine 1.3 H Glucose 126 H 228 H Uric Acid 8.8 H Calcium 7.6 L Phosphorus 2.2 L Total Bilirubin 1.1 H 1.5 H Total Protein 5.3 L Globulin 2.1 L 2.1 L 12/16/18 12/16/18 12/16/18 Unknown 16:49 13:07 RBC Hgb Hct RDW MPV 7.3 L Gran % 94.9 H Lymph % (Auto) 1.8 L Lymph # (Auto) 0.1 L Band Neutrophils % 15 H Lymphocytes % 2 L ABG Methemoglobin VBG pO2 VBG O2 Saturation VBG Lactic Acid 3.6 H Carboxyhemoglobin Anion Gap BUN Creatinine Glucose Uric Acid Calcium Phosphorus Total Bilirubin Total Protein Globulin 12/16/18 12/16/18 09:18 08:55 RBC Hgb Hct RDW MPV Gran % Lymph % (Auto) Lymph # (Auto) Band Neutrophils % Lymphocytes % ABG Methemoglobin 0.1 L VBG pO2 44 H VBG O2 Saturation 75.3 H VBG Lactic Acid 3.6 H Carboxyhemoglobin 3.2 H Anion Gap BUN Creatinine Glucose Uric Acid Calcium Phosphorus Total Bilirubin Total Protein Globulin Meds: Medications Acetaminophen (Tylenol) 650 mg PO Q6HP PRN; Protocol PRN Reason: Per Pain Protocol/Fever > 101 Hydrocodone Bitart/Acetaminophen ([place] 5/325mg) 1 tab PO Q4HP PRN; Protocol PRN Reason: Per Pain Protocol Last Admin: 12/16/18 17:24 Dose: 1 tab Documented by: Albuterol/Ipratropium (Duoneb) 3 ml NEB Q4HRT PRN PRN Reason: Dyspnea Aspirin (Aspirin) 81 mg CHEWED [facility] Last Admin: 12/16/18 21:25 Dose: 81 mg Documented by: Atorvastatin Calcium (Lipitor) 10 mg PO HS [facility] Last Admin: 12/16/18 21:25 Dose: 10 mg Documented by: Buspirone HCl (Buspar) 5 - 10 mg PO BIDP PRN PRN Reason: Anxiety Carvedilol (Coreg) 25 mg PO BIDCC [facility] Last Admin: 12/16/18 17:48 Dose: 25 mg Documented by: Dextrose (Dextrose 50%) 0 ml IV UD PRN PRN Reason: Hypoglycemia Diagnostic Test (Pha) (Accu-Chek) 1 each FS ACHS [facility] Last Admin: 12/17/18 07:14 Dose: 1 each Documented by: Diphenhydramine HCl (Benadryl) 25 mg PO HSP PRN PRN Reason: Insomnia Enoxaparin Sodium (Lovenox) 40 mg SQ DAILY [facility] Escitalopram Oxalate (Lexapro) 40 mg PO HS [facility] Last Admin: 12/16/18 21:25 Dose: 40 mg Documented by: Finasteride (Proscar) 5 mg PO HS [facility] Last Admin: 12/16/18 21:25 Dose: 5 mg Documented by: Glucose (Insta-Glucose) 15 gm PO PRN PRN PRN Reason: Hypoglycemia Azithromycin 500 mg/ Dextrose 250 mls @ 250 mls/hr IV DAILY [facility]; Protocol Stop: 12/18/18 09:59 Last Admin: 12/16/18 17:08 Dose: 250 mls/hr Documented by: Insulin Human Lispro (Humalog) 0 unit SQ [facility]; Protocol Last Admin: 12/17/18 07:39 Dose: Not Given Documented by: Levothyroxine Sodium (Synthroid) 50 mcg PO QAMAC [facility] Last Admin: 12/17/18 07:10 Dose: 50 mcg Documented by: Losartan Potassium (Cozaar) 50 mg PO DAILY [facility] Melatonin (Melatonin 3mg Tablet) 3 mg PO HSP PRN PRN Reason: Sleep Last Admin: 12/16/18 23:22 Dose: 3 mg Documented by: Ondansetron HCl (Zofran) 4 mg IV Q6HP PRN PRN Reason: Nausea And Vomiting Promethazine HCl (Phenergan) 12.5 mg PO Q6HP PRN PRN Reason: Nausea And Vomiting Last Admin: 12/16/18 17:24 Dose: 12.5 mg Documented by: Sitagliptin Phosphate (Januvia) 100 mg PO DAILY [facility] Sodium Chloride (Saline Flush) 10 ml IV Q8 [facility] Last Admin: 12/17/18 07:19 Dose: Not Given Documented by: Spironolactone (Aldactone) 25 mg PO DAILY [facility] Tamsulosin HCl (Flomax) 0.4 mg PO HS [facility] Last Admin: 12/16/18 21:26 Dose: 0.4 mg Documented by: Torsemide (Demadex) 20 mg PO BID [facility] Last Admin: 12/16/18 21:31 Dose: Not Given Documented by: - ABG Interpretation ABG results: 12/16/18 09:18 ABG Methemoglobin 0.1 L VBG pH 7.36 VBG pCO2 49.5 VBG pO2 44 H VBG HCO3 27.4 VBG Total CO2 28.9 VBG O2 Saturation 75.3 H VBG Base Excess 1.1 Medical - PN: A/P - Time Spent With Patient Total time spent is greater than 50% in coordination of care (as documented) at patient's floor/unit and/or counseling patient: - Narrative A/P Narrative: A: *Gastroenteritis: Culprit likely food from restaurant -c. diff neg *SIRS 4/4 (febrile, tachycardic, tachypneic, bandemia): resolved *Lactic acidosis: resolved *volume depletion: improving *dyspnea: 2/2 GI upset and shallow breathing. satting low 90's on room air (where he typically runs at home, 90-92) -CXR clear except for some atelectasis *DM: *Obesity: *KEVEN & Likely obesity hypoventilation syndrome: -uses prn O2 @home *CKD III: *HTN/HLD: *Anxiety/depression: *Hypothyroidism: *GERD: * P: -empiric abx given severity of illness -IVF's -stool studies final pending -hold home torsemide today -cont home ASA/Statin -cont home BB/ARB -SSI, glip -IS hourly -ppx: lovenox full code Medical - PN: Qual - VTE Deep Vein Thrombosis/Pulmonary Embolism Present on Admission: No
[2018-12-17] MEDS ORDERED: 0.9 % SODIUM CHLORIDE 1,000 ML IV SCH (08:30)
[2018-12-17 08:51] LABS: Band Neutrophils % 6 % (0-10); Lymphocytes % 7 % (15-49); Monocytes % (Manual) 3 % (1-12); Platelet Estimate NORMAL (NORMAL); RBC Morphology NORMAL (NORMAL); Segmented Neutrophils % 84 % (38-78)
[2018-12-17] MEDS: ENOXAPARIN 40 MG/0.4 ML SYRINGE SQ SCH (08:53)
[2018-12-17] MEDS: sitaGLIPtin 100 MG TABLET PO SCH (08:53)
[2018-12-17] MEDS: TORSEMIDE 10 MG TABLET PO SCH ×2 (08:53→16:45)
[2018-12-17] MEDS: LOSARTAN 50 MG TABLET PO SCH (08:53)
[2018-12-17] MEDS: CARVEDILOL 12.5 MG TABLET PO SCH ×2 (08:54→17:27)
[2018-12-17] MEDS: AZITHROMYCIN 500 MG in DEXTROSE 5% IN WATER 250 ML IV SCH (08:56)
[2018-12-17] MEDS ORDERED: SPIRONOLACTONE 25 MG TABLET PO SCH (09:00)
[2018-12-17] MEDS: LOPERAMIDE 2 MG CAPSULE PO PRN ×2 (09:48→11:25)
--- NOTE | 2018-12-17 11:50 | Discharge Summary ---
Medical - DS: Prov Patient information: Note initiated : 12/17/18 at 11:48 am Service Date, if different from initiated Date: [] Patient: Pradeep Zamorano 73 y/o M admitted on 12/16/18 for Shortness of Breath, Chills. Chief Complaint: [] Date of admission: 12/16/18 14:27 Discharge date: 12/18/18 Primary care physician: Brennon Neal Consults: 12/16/18 12:58 Consult to Physician [CONS] Stat Comment: Consulting Provider: Wil Tomas Reason For Exam: Physician to Consult Medical - DS: Meds - Discharge Medications Prescriptions: metroNIDAZOLE [Flagyl] 500 mg PO Q8 #12 tab Loperamide [Imodium] 2 mg PO PRN PRN #20 cap PRN Reason: Diarrhea Transmission Status: Received by [facility] [id number] Levofloxacin [Levaquin] 500 mg PO DAILY #4 tab Active and Home Medications: Home Medications Aspirin 81 mg CHEWED HS 08/04/15 [History Confirmed 12/16/18 Last Taken 12/15/18] Atorvastatin [Lipitor] 10 mg PO HS 08/04/15 [History Confirmed 12/16/18 Last Taken 12/15/18] Carvedilol [Coreg] 25 mg PO BIDCC 08/04/15 [History Confirmed 12/16/18 Last Taken 12/15/18] Escitalopram [Lexapro] 40 mg PO HS 08/04/15 [History Confirmed 12/16/18 Last Taken 12/15/18] Finasteride [Proscar] 5 mg PO HS 08/04/15 [History Confirmed 12/16/18 Last Taken 12/15/18] Levothyroxine [Synthroid] 50 mcg PO QAMAC 08/04/15 [History Confirmed 12/16/18 Last Taken 12/15/18] Losartan [Cozaar] 50 mg PO DAILY 08/04/15 [History Confirmed 12/16/18 Last Taken 12/15/18] Tamsulosin [Flomax] 0.4 mg PO HS 08/04/15 [History Confirmed 12/16/18 Last Taken 12/15/18] Spironolactone [Aldactone] 25 mg PO DAILY 01/16/17 [History Confirmed 12/16/18 Last Taken 12/15/18] Torsemide [Demadex] 20 mg PO BID 01/16/17 [History Confirmed 12/16/18 Last Taken 12/15/18] sitaGLIPtin [Januvia] 100 mg PO DAILY 04/13/18 [History Confirmed 12/16/18 Last Taken 12/15/18] buspirone 7.5 mg tablet 5 - 10 mg PO BIDP PRN 05/21/18 [History Confirmed 12/16/18 Last Taken 12/15/18] Medical - DS: Hosp Hospital Course: Mr. Zamorano is a 73 year old M Presents to the ED with nausea diarrhea fevers chills which started last night. Patient states that he felt fine waking up Saturday morning but after he was fine Saturday night he had taken out of the [employer] restaurant 8 about 730 and then about between 01/12/1930 started having nausea but no vomiting but had diarrhea and fever and chills. He says he had about 4 5 episodes of diarrhea and that initially expelled quite a bit of fluid and then decreased over repeated episodes. He has some crampy abdominal pain throughout but more so in the right lower quadrant. He also feels like he is short of breath but attributes this to the GI upset and shallow breathing and being overweight. In the ED he is found to be febrile with tachycardia and tachypnea. He does use oxygen at home several times a month and at night occasionally. In the ED he was placed on 2 L of oxygen to maintain mid 90s. While I visited with him I put him on room air and he remained low 90s. He states he runs 90-92 at home sometimes he will drop into the mid to upper 80s. He does not carry a diagnosis of COPD does not have inhalers. He quit smoking 2007. Abdominal x-ray was done which showed decompressed GI track. No abnormalities. ABG was done which showed PaO2 correlating with sats no other abnormalities. Troponin which was negative and procalcitonin was low. Patient very weak felt unsafe to sent home where he lives alone and admission was requested. He denies coughing Also of note his lactate was 3.6. 12/17 Patient having diarrhea this morning. Little bit of nausea and headache. Otherwise no new complaints. C. difficile negative. Lactic acidosis resolved. bandemia resolved 12/18 Feeling better, diarrhea much improved. Stable for discharge. Discharge diagnosis: Gastroenteritis with Sirs and lactic acidosis volume depletion Secondary discharge diagnosis: Dyspnea diabetes obesity obstructive sleep apnea likely hyper hypoventilation obesity syndrome chronic kidney disease hypertension anxiety depression hypothyroidism GERD - Time Spent with Patient Total time spent providing and/or coordinating discharge services: Greater than 30 minutes Medical - DS: Exam - Constitutional Vitals: Vital Signs Temp Pulse Pulse Resp BP BP Pulse Ox 12/17/18 11:27 89 16 12/17/18 08:30 98 F 72 20 128/67 95 12/17/18 03:45 98.0 F 74 18 107/66 91 12/16/18 23:53 94 12/16/18 23:52 80 16 94 12/16/18 23:51 80 16 12/16/18 23:24 98.1 F 72 18 107/58 92 12/16/18 19:45 93 12/16/18 19:43 98.8 F 84 16 103/58 93 12/16/18 14:27 98.2 F 81 24 H 121/65 95 12/16/18 14:13 84 19 88 L 12/16/18 14:00 91 H 118/57 92 12/16/18 13:46 88 101/54 92 12/16/18 13:31 88 20 118/52 90 12/16/18 13:15 86 23 H 125/52 94 12/16/18 13:00 86 29 H 109/54 95 12/16/18 12:46 85 27 H 94 12/16/18 12:45 86 27 H 97 12/16/18 12:30 87 27 H 111/46 97 12/16/18 12:15 89 28 H 119/53 92 12/16/18 12:00 90 29 H 116/49 93 Intake and Output 12/16/18 12/17/18 12/17/18 21:59 05:59 13:59 Intake Total 2290 2650 Output Total 350 200 500 Balance 1940 2450 -500 Intake: IV 1250 2000 Sodium Chloride 0.9% 1,000 ml @ 1000 1000 125 mls/hr IV .Q8H [facility] Rx#: [id number] Sodium Chloride 0.9% 1,000 ml @ 1000 Wide Open IV BOLUS ONE Rx#: [id number] Zithromax 500 mg In Dextrose 5% 250 in Water 250 ml @ 250 mls/hr IV DAILY [facility] Rx#:[id number] Oral 1040 650 Output: Void Amount 350 200 500 Other: Meal Dinner Breakfast Percent of Meal Consumed 100% 75% Feeding Ability Independent Urine Appearance Clear Urine Color Dark Yellow Stool Size Moderate Moderate Stool Color Yellow Stool Consistency Liquid Liquid # Bowel Movements 2 1 Weight 148.325 kg Medical - DS: Data Labs on day of discharge: Labs from last 24 hours 12/17/18 12/17/18 12/17/18 04:30 04:30 04:30 WBC 5.1 RBC 4.21 L Hgb 13.3 L Hct 39.7 L MCV 94.4 MCH 31.6 MCHC 33.5 RDW 14.9 H Plt Count 164 MPV 7.3 L Total Counted 100 Seg Neutrophils % 84 H Band Neutrophils % 6 Lymphocytes % 7 L Monocytes % (Manual) 3 Eosinophils % (Manual) Platelet Estimate Normal RBC Morphology Normal VBG Lactic Acid 1.4 Sodium 139 Potassium 4.3 Chloride 107 Carbon Dioxide 25 Anion Gap 7.0 L BUN 19 Creatinine 1.3 H GFR Calculation 54 Glucose 126 H Uric Acid 8.8 H Calcium 7.6 L Phosphorus 2.2 L Magnesium 1.9 Total Bilirubin 1.1 H Direct Bilirubin < 0.2 GGT 12 AST 14 ALT 14 Alkaline Phosphatase 39 Lactate Dehydrogenase 165 Total Protein 5.3 L Albumin 3.2 Globulin 2.1 L Albumin/Globulin Ratio 1.5 Triglycerides 109 12/16/18 12/16/18 12/16/18 16:49 16:49 13:07 WBC RBC Hgb Hct MCV MCH MCHC RDW Plt Count MPV Total Counted 100 Seg Neutrophils % 78 Band Neutrophils % 15 H Lymphocytes % 2 L Monocytes % (Manual) 3 Eosinophils % (Manual) 2 Platelet Estimate Normal RBC Morphology Normal VBG Lactic Acid 3.6 H Sodium Potassium Chloride Carbon Dioxide Anion Gap BUN Creatinine GFR Calculation Glucose Uric Acid Calcium Phosphorus Magnesium 2.1 Total Bilirubin Direct Bilirubin GGT AST ALT Alkaline Phosphatase Lactate Dehydrogenase Total Protein Albumin Globulin Albumin/Globulin Ratio Triglycerides Preliminary micro results at discharge 12/16/18 17:02 Stool Culture - Preliminary Stool Medical - DS: A/P - Patient/Caregiver Discharge Instructions Activity: increase activity as tolerated Diet: Consistent Carbohydrate Prescriptions: metroNIDAZOLE [Flagyl] 500 mg PO Q8 #12 tab Loperamide [Imodium] 2 mg PO PRN PRN #20 cap PRN Reason: Diarrhea Transmission Status: Received by [facility] [id number] Levofloxacin [Levaquin] 500 mg PO DAILY #4 tab - Follow up Plan Follow up with: Brennon Neal DO [Primary Care Provider] - Disposition: Home, Self-Care Prognosis: Fair Rehab Potential: Fair Overall status at discharge: patient is progressing back to baseline Medical - DS: Qual - VTE Deep Vein Thrombosis/Pulmonary Embolism Present on Admission: No
[2018-12-17] MEDS: LEVOFLOXACIN 500 MG TABLET PO SCH (13:32)
[2018-12-17] MEDS: ACETAMINOPHEN 325 MG TABLET PO PRN (13:33)
[2018-12-17] MEDS: metroNIDAZOLE 500 MG TABLET PO SCH ×2 (14:50→22:27)
[2018-12-17] MEDS: PROMETHAZINE 25 MG TABLET PO PRN (20:24)
[2018-12-17] MEDS: ESCITALOPRAM 20 MG TABLET PO SCH (20:25)
[2018-12-17] MEDS: FINASTERIDE 5 MG TABLET PO SCH (20:25)
[2018-12-17] MEDS: TAMSULOSIN 0.4 MG CAPSULE PO SCH (20:26)
[2018-12-17] MEDS: ASPIRIN 81 MG TAB.CHEW CHEWED SCH (20:26)
[2018-12-17] MEDS: ATORVASTATIN 20 MG TABLET PO SCH (20:26)
[2018-12-17] MEDS: MELATONIN 3 MG TABLET PO PRN (22:28)
[2018-12-18] MEDS: 0.9 % SODIUM CHLORIDE 10 ML SYRINGE IV SCH (04:16)
[2018-12-18] MEDS: metroNIDAZOLE 500 MG TABLET PO SCH (06:45)
[2018-12-18] MEDS: ENOXAPARIN 40 MG/0.4 ML SYRINGE SQ SCH (08:54)
[2018-12-18] MEDS: CARVEDILOL 12.5 MG TABLET PO SCH (08:54)
[2018-12-18] MEDS: sitaGLIPtin 100 MG TABLET PO SCH (08:54)
[2018-12-18] MEDS: TORSEMIDE 10 MG TABLET PO SCH (08:55)
[2018-12-18] MEDS: LOSARTAN 50 MG TABLET PO SCH (08:55)
[2018-12-18] MEDS: ACETAMINOPHEN 325 MG TABLET PO PRN (08:55)
[2018-12-18] MEDS: LEVOFLOXACIN 500 MG TABLET PO SCH (08:56)
[2018-12-18] MEDS ORDERED: SPIRONOLACTONE 25 MG TABLET PO SCH (09:00)
[2018-12-18] MEDS: INSULIN LISPRO 1 UNIT/0.01 ML UNIT SQ SCH ×2 (09:00→13:03)
[2018-12-18] MEDS: LEVOTHYROXINE 50 MCG TABLET PO SCH (09:01)
[2018-12-18] MEDS ORDERED: FLU VACC QS2019-20(6MOS UP)/PF 60 MCG/0.5 ML SYRINGE IM ONE (10:00)
== END 2018-12-18 13:40 | disposition home or self-care (01) ==
LOC: ED 07:50 → MEDSUR 07:50
PROVIDERS: ADMIT Internal Medicine; ATTEND Internal Medicine

== ENCOUNTER 2021-10-23 17:18 | Inpatient (IN) ==
[2021-10-23] MEDS ORDERED: IOPAMIDOL 100 ML BOTTLE IV ONE (17:19)
[2021-10-23 17:53] LABS: POC Calcium, Ionized 1.18 (1.16-1.32); POC Creatinine 1.2 (0.6-1.2); POC Potassium 4.5 (3.3-5.1)
[2021-10-23 18:40] LABS: Basophils # (Auto) 0.03 K/mcL (0.00-0.30); Basophils % (Auto) 0.3 % (0.0-2.0); Eosinophils # (Auto) 0.26 K/mcL (0.00-0.70); Eosinophils % (Auto) 2.8 % (0.0-7.0); Hematocrit 46.7 % (40.1-51.0); Hemoglobin 15.2 g/dL (13.7-17.5); Lymphocytes # (Auto) 0.79 K/mcL (1.50-4.80); Lymphocytes % (Auto) 8.6 % (15.5-49.0); Mean Cell Volume 94.7 fL (80.0-100.0); Mean Corpuscular HGB Conc 32.5 g/dL (31.0-36.0); Mean Platelet Volume 9.3 fL (7.4-10.4); Monocytes # (Auto) 0.44 K/mcL (0.10-0.90); Monocytes % (Auto) 4.8 % (1.0-12.0); Neutrophils % (Auto) 83.1 % (38.0-78.0); Platelet Count 194 K/mcL (140-440); RBC 4.93 M/mcL (4.63-6.08); Red Cell Distribution Width 13.4 % (11.5-14.5); WBC 9.2 K/mcL (4.5-11.0)
[2021-10-23 19:01] LABS: ALT/SGPT 16 U/L (<40); AST/SGOT 14 U/L (<40); Albumin 4.3 gm/dL (3.2-5.2); Albumin/Globulin Ratio 1.7 (1.0-2.3); Alkaline Phosphatase 77 U/L (39-117); Bilirubin,Total 1.1 mg/dL (0.1-1.0); Blood Urea Nitrogen 20 mg/dL (8-23); Calcium 9.8 mg/dL (8.6-10.4); Carbon Dioxide 32 mmol/L (22-30); Chloride 98 mmol/L (96-108); Globulin 2.6 gm/dL (2.2-3.7); Glomerular Filtration Rate 65; Glucose 226 mg/dL (70-105)
[2021-10-23] MEDS ORDERED: morphine 4 MG/ML VIAL IV ONE ×2 (19:01→20:55)
[2021-10-23] MEDS ORDERED: morphine 2 MG/ML VIAL IV PRN (21:08)
[2021-10-23] MEDS ORDERED: ONDANSETRON 4 MG/2 ML VIAL IV PRN (21:08)
[2021-10-23] MEDS ORDERED: NALOXONE HCL 0.4 MG/ML VIAL IV PRN (21:08)
--- NOTE | 2021-10-23 21:16 | Emergency Department Note ---
Abdominal Pain HPI General Chief Complaint: Abdominal Pain Stated Complaint: abd pain Time Seen by Provider: 10/23/21 17:25 Source: EMS Mode of arrival: wheelchair Limitations: no limitations History of Present Illness HPI Narrative: Narrative: 76-year-old male with a history of previous abdominal hernia repair, AAA repair, diabetes, CHF, hypertension presenting to the ER with worsening mid abdominal pain starting today. Progressively worsening with worsening nausea but no vomiting. Last bowel movement was 24 hours ago, no longer passing any flatus. No history of bowel obstructions. No fever no chills no cardiorespiratory complaints no urinary symptoms. Pain is in his mid abdomen nonradiating, no back pain. No extremity symptoms. No obvious aggravating or alleviating factors no similar pain in the past. Related Data Home Medications Medication Instructions Recorded Confirmed aspirin 81 mg chewable tablet 81 mg CHEWED HS 08/04/15 12/28/20 atorvastatin 40 mg tablet 10 mg PO HS 08/04/15 12/28/20 carvedilol 25 mg tablet 25 mg PO BIDCC 08/04/15 12/28/20 escitalopram oxalate 20 mg tablet 40 mg PO HS 08/04/15 12/28/20 finasteride 5 mg tablet 5 mg PO HS 08/04/15 12/28/20 levothyroxine 50 mcg tablet 50 mcg PO QAMAC 08/04/15 12/28/20 losartan 50 mg tablet 50 mg PO DAILY 08/04/15 12/28/20 tamsulosin 0.4 mg capsule 0.4 mg PO HS 08/04/15 12/28/20 spironolactone 25 mg tablet 25 mg PO DAILY 01/16/17 12/28/20 torsemide 20 mg tablet 20 mg PO BID 01/16/17 12/28/20 sitagliptin 100 mg tablet 100 mg PO DAILY 04/13/18 12/28/20 buspirone 7.5 mg tablet 5 mg PO BIDP PRN Anxiety 12/28/20 12/28/20 Previous Rx's Medication Instructions Recorded zolpidem 5 mg tablet 5 mg PO QHS PRN sleep #2 tabs 12/28/20 Allergies Allergy/AdvReac Type Severity Reaction Status Date / Time chlortetracycline Allergy Mild Hives Verified 10/23/21 17:27 [Chlortetracycline] Review of Systems ROS ROS Narrative: Narrative: All systems ED: reviewed and negative except as stated. PFSH Narrative Patient History Narrative: Narrative: Medical/Surgical/Family History All Active Problems (Updated 10/23/21 @ 21:16 by Royce Orozco DO) Cough in adult (Acute) Elevated d-dimer (Acute) SBO (small bowel obstruction) (Acute) Hypersomnia (Chronic) Shortness of breath (Acute) Diarrhea (Acute) Fever (Acute) Food poisoning (Acute) Morbid obesity (Chronic) CAD (coronary artery disease) (Chronic) DMII (diabetes mellitus, type 2) (Chronic) Obstructive sleep apnea (Chronic) Deep vein thrombosis (Chronic) Mild basilar atelectasis of both lungs (Chronic) Hypoventilation syndrome (Chronic) BPH (benign prostatic hyperplasia) (Chronic) Hypothyroidism (Chronic) Hyperlipidemia (Chronic) Hypertension (Chronic) Anxiety (Chronic) Gout (Chronic) Decreased functional mobility (Chronic) Swelling of lower extremity (Chronic) Joint pain (Chronic) Medical History Accidental drug ingestion Acute and chronic respiratory failure with hypoxia Acute exacerbation of chronic obstructive airways disease Acute kidney injury Acute respiratory failure with hypoxia Anxiety BPH (benign prostatic hyperplasia) CAD (coronary artery disease) Community acquired pneumonia Decreased functional mobility Deep vein thrombosis DMII (diabetes mellitus, type 2) Drug overdose Dyspnea Gout Hyperlipidemia Hypersomnia Hypertension Hypothyroidism Hypoventilation syndrome Obesity related Hypoxia Joint pain Mild basilar atelectasis of both lungs Morbid obesity Obstructive sleep apnea Shortness of breath Swelling of lower extremity Surgical History History of AAA (abdominal aortic aneurysm) repair Hx of total hip arthroplasty Hx of total hip arthroplasty Family History Mother Breast cancer Laryngeal cancer Father Heart disease Social History Smoking Status: Never smoker Alcohol Intake Frequency: 0-2 drinks per day Substance Use: does not use Exam Narrative Narrative: Narrative: Constitutional: normally developed, no acute distress . Head: Normocephalic, atraumatic, Eyes: No Icterus, ENT: Moist mucus membranes, Neck: Supple, Cardiac: Normal heart sounds, palpable pulses, no asymmetric peripheral edema Pulmonary: Normal respiratory effort. Breath sounds clear, no wheeze, rhonchi, rales, Gastrointestinal: Abdomen soft, distended, tenderness mid abdomen no rebound no guarding, healed abdominal scars Musculoskeletal: No gross deformities, well perfused Skin: warm, dry Neuro: Alert and oriented. General Limitations: no limitations Course Vital Signs Vital signs: Vital Signs Temperature 36.1 C 10/23/21 17:23 Pulse Rate 77 10/23/21 17:23 Respiratory Rate 20 10/23/21 17:23 Blood Pressure 159/95 10/23/21 17:23 Pulse Oximetry (%) 91 10/23/21 17:23 Oxygen Delivery Method 10/23/21 17:23 Temperature 36.1 C 10/23/21 17:23 Pulse Rate 78 10/23/21 20:46 Respiratory Rate 23 H 10/23/21 21:02 Blood Pressure 139/79 10/23/21 21:02 Pulse Oximetry (%) 91 10/23/21 20:46 Oxygen Delivery Method 10/23/21 17:51 Oxygen Flow Rate (L/min) 2 10/23/21 17:51 MDM MDM Narrative Medical decision making narrative: Narrative: Patient with worsening mid abdominal pain and nausea no longer having bowel movements or passing flatus. Sounds most suggestive of potential bowel obstruction, other intra-abdominal process within differential. Work-up is initiated we will obtain labs and CT. Does have a history of AAA repair however his combination of symptoms and the way he describes his pain seems less likely related to that and more suspicious for other abdominal process thus we will obtain CT initially with IV contrast as opposed to a CT angio CBC unremarkable electrolytes show a hyperglycemia without DKA, LFTs within normal troponin negative Twelve-lead EKG sinus rhythm 71 borderline first-degree AV block, QRS QTC within normal no ST segment changes or STEMI criteria Reevaluation CT per direct radiology is concerning for high-grade ileus versus SBO, clinically he has multiple risk factors including multiple previous surgeries for an SBO and the progression of symptoms now with no bowel movement for 24 hours, no longer having flatus and progressive worsening nausea does seem most consistent with likely SBO at this point. Did reach out to Dr. Irby who is agreeable to admitting the patient did request an NG tube which we will place. Patient agreeable to plan will be admitted at this time. Of note patient did confirm he is DNR status Lab Data Result diagrams: 10/23/21 17:42 10/23/21 17:42 Labs: Lab Results 08/22/22 08/22/22 08/22/22 Range/Units 17:42 17:42 17:49 WBC 9.2 (4.5-11.0) K/mcL RBC 4.93 (4.63-6.08) M/mcL Hgb 15.2 (13.7-17.5) g/dL Hct 46.7 (40.1-51.0) % POC Hct (41-55) MCV 94.7 (80.0-100.0) fL MCH 30.8 (26.0-34.0) pg MCHC 32.5 (31.0-36.0) g/dL RDW 13.4 (11.5-14.5) % Plt Count 194 (140-440) K/mcL MPV 9.3 (7.4-10.4) fL Immature Gran % (Auto) 0.4 (0.0-0.5) % Neut % (Auto) 83.1 H (38.0-78.0) % Lymph % (Auto) 8.6 L (15.5-49.0) % [place] % (Auto) 4.8 (1.0-12.0) % Eos % (Auto) 2.8 (0.0-7.0) % Baso % (Auto) 0.3 (0.0-2.0) % Lymph # (Auto) 0.79 L (1.50-4.80) K/mcL [place] # (Auto) 0.44 (0.10-0.90) K/mcL Eos # (Auto) 0.26 (0.00-0.70) K/mcL Baso # (Auto) 0.03 (0.00-0.30) K/mcL Immature Gran # 0.04 (0.00-0.05) K/mcl Absolute Neutrophils 7.66 (1.80-8.00) K/mcL POC Sodium (133-145) Sodium 142 (133-145) mmol/L POC Potassium (3.3-5.1) Potassium 4.5 (3.3-5.1) mmol/L POC Chloride (96-108) Chloride 98 (96-108) mmol/L Carbon Dioxide 32 H (22-30) mmol/L POC Total CO2 (22-30) Anion Gap 12.0 (8.0-16.0) POC BUN (6-20) BUN 20 (8-23) mg/dL Creatinine 1.1 (0.7-1.2) mg/dL POC Creatinine (0.6-1.2) GFR Calculation 65 Glucose 226 H (70-105) mg/dL POC Glucose (70-105) Calcium 9.8 (8.6-10.4) mg/dL POC WB Ioniz Calcium (1.16-1.32) Total Bilirubin 1.1 H (0.1-1.0) mg/dL AST 14 (<40) U/L ALT 16 (<40) U/L Alkaline Phosphatase 77 (39-117) U/L Total Protein 6.9 (5.9-8.4) gm/dL Albumin 4.3 (3.2-5.2) gm/dL Globulin 2.6 (2.2-3.7) gm/dL Albumin/Globulin Ratio 1.7 (1.0-2.3) Lipase 52 (7-60) U/L POC Troponin I 0.03 (0.02-0.08) 10/23/21 Range/Units 17:50 WBC (4.5-11.0) K/mcL RBC (4.63-6.08) M/mcL Hgb (13.7-17.5) g/dL Hct (40.1-51.0) % POC Hct 46.0 (41-55) MCV (80.0-100.0) fL MCH (26.0-34.0) pg MCHC (31.0-36.0) g/dL RDW (11.5-14.5) % Plt Count (140-440) K/mcL MPV (7.4-10.4) fL Immature Gran % (Auto) (0.0-0.5) % Neut % (Auto) (38.0-78.0) % Lymph % (Auto) (15.5-49.0) % [place] % (Auto) (1.0-12.0) % Eos % (Auto) (0.0-7.0) % Baso % (Auto) (0.0-2.0) % Lymph # (Auto) (1.50-4.80) K/mcL [place] # (Auto) (0.10-0.90) K/mcL Eos # (Auto) (0.00-0.70) K/mcL Baso # (Auto) (0.00-0.30) K/mcL Immature Gran # (0.00-0.05) K/mcl Absolute Neutrophils (1.80-8.00) K/mcL POC Sodium 140 (133-145) Sodium (133-145) mmol/L POC Potassium 4.5 (3.3-5.1) Potassium (3.3-5.1) mmol/L POC Chloride 97 (96-108) Chloride (96-108) mmol/L Carbon Dioxide (22-30) mmol/L POC Total CO2 37.0 H (22-30) Anion Gap (8.0-16.0) POC BUN 23 H (6-20) BUN (8-23) mg/dL Creatinine (0.7-1.2) mg/dL POC Creatinine 1.2 (0.6-1.2) GFR Calculation Glucose (70-105) mg/dL POC Glucose 229 H (70-105) Calcium (8.6-10.4) mg/dL POC WB Ioniz Calcium 1.18 (1.16-1.32) Total Bilirubin (0.1-1.0) mg/dL AST (<40) U/L ALT (<40) U/L Alkaline Phosphatase (39-117) U/L Total Protein (5.9-8.4) gm/dL Albumin (3.2-5.2) gm/dL Globulin (2.2-3.7) gm/dL Albumin/Globulin Ratio (1.0-2.3) Lipase (7-60) U/L POC Troponin I (0.02-0.08) Discharge Plan Patient/Caregiver Discharge Instructions Pt seen by [employer] EQUIPMENT REPAIRER/PA only: No Clinical Impression: SBO (small bowel obstruction) Patient Disposition: Xfer As Inpt ([facility]) Condition: Serious Follow up with: Brennon Neal DO [Primary Care Provider] - Prescriptions: No Action buspirone 7.5 mg tablet 5 mg PO BIDP PRN (Reason: Anxiety) zolpidem 5 mg tablet 5 mg PO QHS PRN (Reason: sleep) Qty: 2 0RF Rx Instructions: If not sleeping within 30 minutes of initiation of sleep study take 1 tablet, may repeat x1 in 30 minutes losartan 50 MG tablet 50 mg PO DAILY atorvastatin 40 MG tablet 10 mg PO HS carvedilol 25 MG tablet 25 mg PO BIDCC tamsulosin 0.4 MG capsule 0.4 mg PO HS levothyroxine 50 MCG tablet 50 mcg PO QAMAC aspirin 81 MG tablet,chewable 81 mg CHEWED HS finasteride 5 MG tablet 5 mg PO HS escitalopram oxalate 20 MG tablet 40 mg PO HS torsemide 20 MG tablet 20 mg PO BID spironolactone 25 MG tablet 25 mg PO DAILY sitagliptin 100 MG tablet 100 mg PO DAILY
[2021-10-23] MEDS ORDERED: PROMETHAZINE 25 MG/ML VIAL IV PRN (21:51)
[2021-10-23] MEDS ORDERED: DEXTROSE 50% 50 ML VIAL IV PRN (21:55)
[2021-10-23] MEDS ORDERED: DEXTROSE 31 GM ORAL.SUSP PO PRN (21:55)
[2021-10-23 23:37] LABS: Hemoglobin A1C 7.4 % Hgb (4.0-6.0)
[2021-10-23] MEDS: LACTATED RINGERS 1,000 ML IV SCH (23:42)
[2021-10-23] MEDS: INSULIN LISPRO 1 UNIT/0.01 ML UNIT SQ SCH (23:50)
[2021-10-23] MEDS: METOCLOPRAMIDE 10 MG/2 ML VIAL IV SCH (23:50)
--- NOTE | 2021-10-24 03:07 | XRay Report ---
CLINICAL INFORMATION: advance NG recheck COMPARISON: 10/23/2021. FINDINGS: NG tube overlies the proximal gastric body The stool gas pattern is unremarkable. There is no free air, soft tissue mass, organomegaly or pathologic calcification. IMPRESSION: Normal abdomen. NG tube overlies the proximal gastric body Interpreted and Authenticated by: Victor Manuel Ramirez 10/24/21
--- NOTE | 2021-10-24 03:08 | XRay Report ---
CLINICAL INFORMATION: post NG tube. COMPARISON: None. FINDINGS: NG tip overlies the GE junction. The stool gas pattern is unremarkable. There is no free air, soft tissue mass, organomegaly or pathologic calcification. IMPRESSION: Normal abdomen. NG tube overlying the GE junction Interpreted and Authenticated by: Victor Manuel Ramirez 10/24/21
--- NOTE | 2021-10-24 04:54 | Cat Scan Report ---
CLINICAL INFORMATION: Abdominal pain COMPARISON: Chest CT 06/19/2021 TECHNIQUE: Following enteric contrast, 80 cc of Isovue-[id number] were injected intravenously, and 60 seconds later, 0.625 mm helical slices were obtained from the mid heart through the subtrochanteric regions. Following reconstruction, 2.5 mm sagittal, coronal and axial reformatted images were processed and reviewed at bone, lung and soft tissue windows. Five minutes later, 0.625 mm helical slices were obtained from the mid heart through the kidneys and viewed at soft tissue windows.The exam was performed using radiation dose optimization techniques including, but not limited to, automated exposure control, adjustment of the mA and/or kV according to patient size and use of iterative reconstruction technique. FINDINGS: The lung bases show subsegmental atelectasis in both posterior lower lobes.. No effusions. The visualized heart is grossly normal in size with scattered calcific plaque in the coronary arteries. Abdominal images show the gallbladder is contracted, but grossly normal. The intrahepatic and common bile ducts are normal caliber: CBD is 6 mm.The liver, pancreas and spleen are normal in size configuration and attenuation without focal lesion. 2.9 cm benign adenoma right adrenal gland has been stable since [address] Left adrenal gland is normal. There is no free air, free fluid or adenopathy. There is mild atrophy of the left kidney: 9.9 cm in length. Mild compensatory hypertrophy of the kidney noted-12.6 cm in length. A 4 mm nonobstructing stone is seen within the inferior calyx of the right kidney. No other renal lesions. Aortobiiliac endograft in satisfactory position. Graft excludes the [place] infrarenal abdominal aorta which is 4.6 cm in diameter and presumably thrombosed around the graft as expected. Pelvic images show prostate, seminal vesicles and urinary bladder to be normal. The stomach and small bowel are mildly dilated to a transition point in the mid jejunum that best seen on axial image 122. Distal small bowel and colon are relatively decompressed. Findings are suggestive, but not diagnostic, of partial small bowel obstruction. Scattered sigmoid diverticuli appreciated, but no evidence of diverticulitis. Retrocecal appendix is unremarkable. Bone windows show no osseous abnormality. A moderate left inguinal hernia contains only mesenteric fat. IMPRESSION: 1. Probable partial small bowel obstruction at the mid jejunum likely due to adhesions or stricture. Consider small bowel follow-through. 2. Mild atrophy left kidney with compensatory hypertrophy of the right kidney. 4 mm nonobstructing stone inferior calyx right kidney 3. Aortobiiliac endograft in satisfactory position. No evidence of complication. 4. 3 cm benign adenoma right adrenal gland-stable for over three years. Interpreted and Authenticated by: Victor Manuel Ramirez 10/24/21
[2021-10-24 05:54] LABS: Basophils # (Auto) 0.04 K/mcL (0.00-0.30); Basophils % (Auto) 0.5 % (0.0-2.0); Eosinophils # (Auto) 0.18 K/mcL (0.00-0.70); Eosinophils % (Auto) 2.2 % (0.0-7.0); Hematocrit 47.6 % (40.1-51.0); Lymphocytes # (Auto) 1.21 K/mcL (1.50-4.80); Lymphocytes % (Auto) 14.9 % (15.5-49.0); Mean Cell Volume 96.2 fL (80.0-100.0); Mean Corpuscular HGB Conc 31.5 g/dL (31.0-36.0); Mean Platelet Volume 8.9 fL (7.4-10.4); Monocytes # (Auto) 0.59 K/mcL (0.10-0.90); Monocytes % (Auto) 7.3 % (1.0-12.0); Neutrophils % (Auto) 74.7 % (38.0-78.0); Platelet Count 181 K/mcL (140-440); RBC 4.95 M/mcL (4.63-6.08); Red Cell Distribution Width 13.4 % (11.5-14.5); WBC 8.1 K/mcL (4.5-11.0)
[2021-10-24] MEDS: INSULIN LISPRO 1 UNIT/0.01 ML UNIT SQ SCH ×4 (05:56→21:21)
[2021-10-24] MEDS: METOCLOPRAMIDE 10 MG/2 ML VIAL IV SCH ×4 (05:59→23:04)
[2021-10-24 06:15] LABS: ALT/SGPT 13 U/L (<40); AST/SGOT 14 U/L (<40); Albumin 3.9 gm/dL (3.2-5.2); Albumin/Globulin Ratio 1.5 (1.0-2.3); Alkaline Phosphatase 73 U/L (39-117); Bilirubin,Direct 0.2 mg/dL (<0.3); Bilirubin,Total 1.1 mg/dL (0.1-1.0); Blood Urea Nitrogen 17 mg/dL (8-23); Calcium 10.2 mg/dL (8.6-10.4); Carbon Dioxide 32 mmol/L (22-30); Chloride 103 mmol/L (96-108); Globulin 2.6 gm/dL (2.2-3.7); Glomerular Filtration Rate 73; Glucose 121 mg/dL (70-105); Lactate Dehydrogenase 194 U/L (135-225); Phosphorous 2.8 mg/dL (2.5-4.5); Triglycerides 222 mg/dL (<150); Uric Acid 7.3 mg/dL (2.5-8.0)
[2021-10-24] MEDS: LACTATED RINGERS 1,000 ML IV SCH ×3 (06:45→21:21)
[2021-10-24] MEDS ORDERED: LORazepam 2 MG/ML VIAL IV PRN (08:43)
--- NOTE | 2021-10-24 08:51 | General Surg History&Physical ---
HPI History of Present Illness Patient information: Note initiated : 10/24/21 at 8:40 am Service Date, if different from initiated Date: [] Patient: Pradeep Zamorano a 76 y/o M admitted on 10/23/21 for abd pain. Chief Complaint: [] Chief complaint: Abdominal pain nausea and vomiting History of present illness: Mr. Zamorano is a 76 year old M admitted for evaluation of partial bowel obstruction. The patient states that he had onset of abdominal pain about midday yesterday. The pain was acute in onset and he rated it as a 10/10 in severity. He had nausea but no vomiting. The pain he took Pepto-Bismol but symptoms did not improve so he came to the emergency room. Evaluation revealed a distended abdomen with some tenderness. Abdominal films showed a dilated loops of bowel and CT was interpreted as showing partial proximal small bowel obstruction with decompression of the distal bowel. He was admitted and started on nasogastric suction. He states that he feels better but he still has pain. He had abdominal x-ray this morning which shows the contrast that was used last night is now in his colon. This suggests that the obstruction at best is partial. He is advised that I will proceed with a small bowel follow-through. Significant history is that he had a laparoscopic umbilical hernia repair. He had an abdominal aortic aneurysm repair but that was transluminal. Constitutional Constitutional: Present snoring, weakness and weight gain EENT Eyes: Absent loss of vision Ears: Present decreased hearing; Absent tinnitus Nose, mouth and throat: Present abnormal hearing; Absent dysphagia or hoarseness Cardiovascular Cardiovascular: Present dyspnea on exertion and pedal edema; Absent chest pain, claudication, palpatations, paroxysmal nocturnal dyspnea or rapid heart rate Respiratory Respiratory: Present cough, dyspnea and dyspnea on exertion Gastrointestinal Gastrointestinal: Present abdominal pain, belching, change in stool character and cramping; Absent heartburn Genitourinary Genitourinary: urinary frequency, urinary hesitancy, urinary incontinence and urinary urgency Musculoskeletal Musculoskeletal: Present arthralgias and myalgias; Absent abnormal gait Integumentary Integumentary: Absent changing lesions, new lesions, pruritus or skin ulcer Neurological Neurological: Absent abnormal gait, abnormal speech, convulsions, focal weakness, lack of coordination, numbness, restless legs, sensory deficit or syncope Psychiatric Psychiatric: Present abnormal sleep pattern Hematologic/Lymphatic Hematologic/Lymphatic: Absent easy bleeding, easy bruising or lymphadenopathy Allergic/Immunologic Allergic/Immunologic: Absent tongue swelling, throat swelling or wheezing PFSH PFSH All Active Problems (Updated 10/24/21 @ 08:50 by Emilio Irby MD) Partial small bowel obstruction (Acute) Cough in adult (Acute) Elevated d-dimer (Acute) SBO (small bowel obstruction) (Acute) Hypersomnia (Chronic) Shortness of breath (Acute) Diarrhea (Acute) Fever (Acute) Food poisoning (Acute) Morbid obesity (Chronic) CAD (coronary artery disease) (Chronic) DMII (diabetes mellitus, type 2) (Chronic) Obstructive sleep apnea (Chronic) Deep vein thrombosis (Chronic) Mild basilar atelectasis of both lungs (Chronic) Hypoventilation syndrome (Chronic) BPH (benign prostatic hyperplasia) (Chronic) Hypothyroidism (Chronic) Hyperlipidemia (Chronic) Hypertension (Chronic) Anxiety (Chronic) Gout (Chronic) Decreased functional mobility (Chronic) Swelling of lower extremity (Chronic) Joint pain (Chronic) Medical History Accidental drug ingestion Acute and chronic respiratory failure with hypoxia Acute exacerbation of chronic obstructive airways disease Acute kidney injury Acute respiratory failure with hypoxia Anxiety BPH (benign prostatic hyperplasia) CAD (coronary artery disease) Community acquired pneumonia Decreased functional mobility Deep vein thrombosis DMII (diabetes mellitus, type 2) Drug overdose Dyspnea Gout Hyperlipidemia Hypersomnia Hypertension Hypothyroidism Hypoventilation syndrome Obesity related Hypoxia Joint pain Mild basilar atelectasis of both lungs Morbid obesity Obstructive sleep apnea Shortness of breath Swelling of lower extremity Surgical History History of AAA (abdominal aortic aneurysm) repair Hx of total hip arthroplasty Hx of total hip arthroplasty Family History Mother Breast cancer Laryngeal cancer Father Heart disease Social History marital status: occupational status: employed smoking status: Former smoker quit date: 03/04/07 alcohol intake frequency: 0-2 drinks per day substance use type: does not use MEDS/ALLERGIES Home Medications and Allergies Home Medications Medication Instructions Recorded Confirmed Type aspirin 81 mg chewable tablet 81 mg CHEWED HS 08/04/15 10/23/21 History carvedilol 25 mg tablet 25 mg PO BIDCC 08/04/15 10/23/21 History escitalopram oxalate 20 mg tablet 40 mg PO HS 08/04/15 10/23/21 History finasteride 5 mg tablet 5 mg PO HS 08/04/15 10/23/21 History levothyroxine 50 mcg tablet 50 mcg PO QAMAC 08/04/15 10/23/21 History losartan 50 mg tablet 50 mg PO DAILY 08/04/15 10/23/21 History tamsulosin 0.4 mg capsule 0.4 mg PO HS 08/04/15 10/23/21 History spironolactone 25 mg tablet 25 mg PO DAILY 01/16/17 10/23/21 History torsemide 20 mg tablet 20 mg PO BID 01/16/17 10/23/21 History buspirone 7.5 mg tablet 5 - 10 mg PO BIDP PRN Anxiety 12/28/20 10/23/21 History atorvastatin 10 mg tablet 1 tab PO QPM 10/23/21 10/23/21 History sitagliptin 100 mg tablet (Januvia) 1 tab PO QDAY 10/23/21 10/23/21 History Allergies Allergy/AdvReac Type Severity Reaction Status Date / Time chlortetracycline Allergy Mild Hives Verified 10/23/21 17:27 [Chlortetracycline] Physical Examination Vital Signs Vital signs: Temp Pulse Resp BP Pulse Ox O2 Del Method O2 Flow Rate 97.7 F 83 20 148/89 94 1.5 10/24/21 08:00 10/24/21 08:00 10/24/21 08:00 10/24/21 08:00 10/24/21 08:00 10/24/21 08:00 10/24/21 03:54 General physical appearance General physical exam: moderate distress, moderate pain and obese Eyes Eye exam: normal ocular movement ENT ENT exam: normal mucosa, no congestion and decreased hearing; negative mucosal exudate Head Head exam IM: Present atraumatic, normal inspection and normocephalic Neck Neck exam: no masses, no bruits, trachea midline, no lymphadenopathy and no venous distension Cardiovascular Cardiovascular exam IM: Present normal rate and rhythm, RRR, +S1 and +S2; Absent gallop or JVD Respiratory Respiratory exam: normal expansion, normal respiratory effort and clear to auscultation Abdomen Abdomen: Present soft, non tender, bowel sounds and distended; Absent guarding or rebound Hernia: Present none Integumentary Integumentary: Present no rash, no growths and no abnormal pigmentation Neurologic Neurologic: Present normal coordination and normal sensation Musculoskeletal Musculoskeletal: Present normal gait and normal posture Psychiatric Psychiatric: Present oriented to time, oriented to person, oriented to place, speech is normal, memory intact and other Results Labs Result diagrams: 10/24/21 05:17 10/24/21 05:16 Labs: Abnormal lab results 10/23/21 10/23/21 10/23/21 Range/Units 17:42 17:42 17:50 Neut % (Auto) 83.1 H (38.0-78.0) % Lymph % (Auto) 8.6 L (15.5-49.0) % Lymph # (Auto) 0.79 L (1.50-4.80) K/mcL VBG Lactic Acid (0.5-2.0) mmol/L Carbon Dioxide 32 H (22-30) mmol/L POC Total CO2 37.0 H (22-30) POC BUN 23 H (6-20) Glucose 226 H (70-105) mg/dL POC Glucose 229 H (70-105) Hemoglobin A1c (4.0-6.0) % Hgb Total Bilirubin 1.1 H (0.1-1.0) mg/dL Triglycerides (<150) mg/dL 10/23/21 10/23/21 10/24/21 Range/Units 22:15 22:15 05:16 Neut % (Auto) (38.0-78.0) % Lymph % (Auto) (15.5-49.0) % Lymph # (Auto) (1.50-4.80) K/mcL VBG Lactic Acid 2.6 H (0.5-2.0) mmol/L Carbon Dioxide 32 H (22-30) mmol/L POC Total CO2 (22-30) POC BUN (6-20) Glucose 121 H (70-105) mg/dL POC Glucose (70-105) Hemoglobin A1c 7.4 H (4.0-6.0) % Hgb Total Bilirubin 1.1 H (0.1-1.0) mg/dL Triglycerides 222 H (<150) mg/dL 10/24/21 Range/Units 05:17 Neut % (Auto) (38.0-78.0) % Lymph % (Auto) 14.9 L (15.5-49.0) % Lymph # (Auto) 1.21 L (1.50-4.80) K/mcL VBG Lactic Acid (0.5-2.0) mmol/L Carbon Dioxide (22-30) mmol/L POC Total CO2 (22-30) POC BUN (6-20) Glucose (70-105) mg/dL POC Glucose (70-105) Hemoglobin A1c (4.0-6.0) % Hgb Total Bilirubin (0.1-1.0) mg/dL Triglycerides (<150) mg/dL Diabetes panel 10/23/21 10/23/21 10/24/21 Range/Units 17:42 22:15 05:16 Sodium 142 143 (133-145) mmol/L Potassium 4.5 4.6 (3.3-5.1) mmol/L Chloride 98 103 (96-108) mmol/L Carbon Dioxide 32 H 32 H (22-30) mmol/L BUN 20 17 (8-23) mg/dL Creatinine 1.1 1.0 (0.7-1.2) mg/dL Glucose 226 H 121 H (70-105) mg/dL Hemoglobin A1c 7.4 H (4.0-6.0) % Hgb Calcium 9.8 10.2 (8.6-10.4) mg/dL AST 14 14 (<40) U/L ALT 16 13 (<40) U/L Alkaline Phosphatase 77 73 (39-117) U/L Total Protein 6.9 6.5 (5.9-8.4) gm/dL Albumin 4.3 3.9 (3.2-5.2) gm/dL Triglycerides 222 H (<150) mg/dL Calcium panel 10/23/21 10/24/21 Range/Units 17:42 05:16 Calcium 9.8 10.2 (8.6-10.4) mg/dL Phosphorus 2.8 (2.5-4.5) mg/dL Albumin 4.3 3.9 (3.2-5.2) gm/dL Pituitary panel 10/23/21 10/24/21 Range/Units 17:42 05:16 Sodium 142 143 (133-145) mmol/L Potassium 4.5 4.6 (3.3-5.1) mmol/L Chloride 98 103 (96-108) mmol/L Carbon Dioxide 32 H 32 H (22-30) mmol/L BUN 20 17 (8-23) mg/dL Creatinine 1.1 1.0 (0.7-1.2) mg/dL Glucose 226 H 121 H (70-105) mg/dL Calcium 9.8 10.2 (8.6-10.4) mg/dL Adrenal panel 10/23/21 10/24/21 Range/Units 17:42 05:16 Sodium 142 143 (133-145) mmol/L Potassium 4.5 4.6 (3.3-5.1) mmol/L Chloride 98 103 (96-108) mmol/L Carbon Dioxide 32 H 32 H (22-30) mmol/L BUN 20 17 (8-23) mg/dL Creatinine 1.1 1.0 (0.7-1.2) mg/dL Glucose 226 H 121 H (70-105) mg/dL Calcium 9.8 10.2 (8.6-10.4) mg/dL Total Bilirubin 1.1 H 1.1 H (0.1-1.0) mg/dL AST 14 14 (<40) U/L ALT 16 13 (<40) U/L Alkaline Phosphatase 77 73 (39-117) U/L Total Protein 6.9 6.5 (5.9-8.4) gm/dL Albumin 4.3 3.9 (3.2-5.2) gm/dL All other labs normal. A/P Assessment and plan (1) Partial small bowel obstruction: Status: Acute (2) Obstructive sleep apnea: Status: Chronic (3) DMII (diabetes mellitus, type 2): Status: Chronic (4) Morbid obesity: Status: Chronic (5) Hypoventilation syndrome: Status: Chronic Comment: Obesity related (6) Hypertension: Status: Chronic (7) Anxiety: Status: Chronic Plan Continue nasogastric suction Gastrografin small bowel follow-through Repeat troponin level EKG Time Spent With Patient Time: Total time spent is greater than 50% in coordination of care (as documented) at patient's floor/unit and/or counseling patient:
--- NOTE | 2021-10-24 10:05 | XRay Report ---
CLINICAL INFORMATION: Follow-up small bowel obstruction COMPARISON: None. FINDINGS: NG tube overlies the gastric body. Stool gas pattern is normal. There is no free air, pathologic calcification, organomegaly or soft tissue mass. IMPRESSION: Normal abdomen. No evidence of bowel obstruction. Interpreted and Authenticated by: Victor Manuel Ramirez 10/24/21
[2021-10-24] MEDS ORDERED: DIATRIZOATE MEGLU/DIATRIZO SOD 120 ML BOTTLE PO ONE (11:30)
--- NOTE | 2021-10-24 12:37 | XRay Report ---
CLINICAL INFORMATION: Possible partial small bowel obstruction mid jejunum COMPARISON: Abdomen and pelvic CT 10/23/2021 TECHNIQUE: Water-soluble contrast was administered via NG tube. Serial plain films obtained of the abdomen and pelvis over one hour and 30 minutes. FINDINGS: Stomach, duodenum, jejunum and ileum are normal in contour and caliber. No evidence of small bowel obstruction. Small bowel transit time is approximately 30 minutes. IMPRESSION: Normal small bowel [id number] evidence of small bowel obstruction Interpreted and Authenticated by: Victor Manuel Ramirez 10/24/21
[2021-10-25] MEDS: LACTATED RINGERS 1,000 ML IV SCH ×3 (02:52→08:19)
[2021-10-25] MEDS: METOCLOPRAMIDE 10 MG/2 ML VIAL IV SCH ×2 (06:10→11:53)
[2021-10-25] MEDS: INSULIN LISPRO 1 UNIT/0.01 ML UNIT SQ SCH ×2 (07:52→11:34)
--- NOTE | 2021-10-25 10:01 | XRay Report ---
CLINICAL INFORMATION: f/u SBO COMPARISON: 10/24/2021. FINDINGS: The stool gas pattern is unremarkable. Small amount of residual enteric contrast is scattered throughout the colon. There is no free air, soft tissue mass, organomegaly or pathologic calcification. IMPRESSION: Normal abdomen-no evidence of small bowel obstruction. Interpreted and Authenticated by: Victor Manuel Ramirez 10/25/21
--- NOTE | 2021-10-25 12:26 | EKG ---
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 Measurements Intervals [place] Rate: 71 P: 66 MD: 208 QRS: 63 QRSD: 89 T: 75 QT: 403 QTc: 438 Interpretive Statements Sinus rhythm Nonspecific ST changes Electronically Signed On 10-25-2021 12:25:54 PDT by Blanca Pedroza D.O. /store/M0/[id number]
--- NOTE | 2021-10-25 12:42 | EKG ---
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 Measurements Intervals [place] Rate: 75 P: 57 CO: 212 QRS: 55 QRSD: 98 T: 53 QT: 400 QTc: 447 Interpretive Statements Sinus rhythm Borderline prolonged CO interval Abnormal R-wave progression, early transition Electronically Signed On 10-25-2021 12:41:42 PDT by Blanca Pedroza D.O. /store/M0/[id number]
--- NOTE | 2021-10-25 16:19 | Discharge Summary ---
Discharge Provider Provider IMPORTANT FOLLOW-UP INFORMATION FOR PCP: Patient information: Note initiated : 10/25/21 at 4:14 pm Service Date, if different from initiated Date: [] Patient: Pradeep Zamorano 76 y/o M admitted on 10/23/21 for abd pain. Chief Complaint: [] Date of admission: 10/23/21 23:27 Discharge date: 10/25/21 Primary care physician: Brennon Neal Admitting clinician: Emilio Irby Attending physician on admission: Emilio Irby Consults: 10/23/21 Consult to Physician [CONS] Stat Comment: Consulting Provider: Emilio Irby Reason For Exam: Physician to Consult Attending physician on discharge: Emilio Irby Discharging clinician: Emilio Irby COURSE Hospital Course Hospital course: 76-year-old male admitted with abdominal pain nausea and signs and symptoms of partial bowel obstruction. He was admitted and placed on nasogastric suction and given IV fluids. He was also given metoclopramide IV. He was improved the following day and had a small bowel follow-through. Small bowel follow-through showed transit through the small bowel in about 1 hour and he has had multiple bowel movements since that time. He is asymptomatic and has tolerated diet. He is stable for discharge home. Discharge diagnosis: Partial small bowel obstruction Secondary discharge diagnosis: Chronic obstructive sleep apnea Diabetes mellitus type 2 Hypertension Chronic obstructive lung disease Reason for admission: Partial small bowel obstruction Procedures: None Pertinent studies/significant findings: Small bowel follow-through Time Spent with Patient Time attestation: Total time spent providing and/or coordinating discharge services: Time spent: Less than 30 minutes Physical Examination Vital Signs Vital signs: Temp Pulse Resp BP Pulse Ox O2 Del Method O2 Flow Rate 97.6 F 70 20 165/75 93 3 10/25/21 12:00 10/25/21 12:00 10/25/21 12:00 10/25/21 12:00 10/25/21 12:00 10/25/21 12:00 10/25/21 08:27 Eyes Eye exam: PERRL and normal ocular movement ENT ENT exam: normal nares, normal mucosa and decreased hearing Neck Neck exam: no masses, no bruits, trachea midline, no lymphadenopathy and no venous distension Cardiovascular Cardiovascular exam IM: Present normal rate and rhythm, RRR, +S1 and +S2; Absent JVD Respiratory Respiratory exam: normal expansion, normal respiratory effort and clear to auscultation Abdomen Abdomen: Present soft, bowel sounds (Normal active bowel sounds) and distended; Absent tender Hernia: Absent none Integumentary Integumentary: Present no rash, no growths and no abnormal pigmentation Neurologic Neurologic: Present normal coordination and normal sensation Musculoskeletal Musculoskeletal: Present normal gait and normal posture Psychiatric Psychiatric: Present oriented to time, oriented to person, oriented to place, speech is normal and memory intact Discharge Plan Patient/Caregiver Discharge Instructions Activity: increase activity as tolerated Diet: Regular Diet Prescriptions: Continued buspirone 7.5 mg tablet 5 - 10 mg PO BIDP PRN (Reason: Anxiety) losartan 50 MG tablet 50 mg PO DAILY carvedilol 25 MG tablet 25 mg PO BIDCC tamsulosin 0.4 MG capsule 0.4 mg PO HS levothyroxine 50 MCG tablet 50 mcg PO QAMAC aspirin 81 MG tablet,chewable 81 mg CHEWED HS finasteride 5 MG tablet 5 mg PO HS escitalopram oxalate 20 MG tablet 40 mg PO HS torsemide 20 MG tablet 20 mg PO BID spironolactone 25 MG tablet 25 mg PO DAILY atorvastatin 10 mg tablet 1 tab PO QPM Januvia 100 mg tablet 1 tab PO QDAY Follow Up Plan Follow up with: Brennon Neal DO [Primary Care Provider] - Patient Disposition: Home, Self-Care Prognosis: Good Rehab Potential: Good I certify that the patient requires SNF services: No Overall status at discharge: patient is progressing back to baseline Discharge Orders: Discharge Order (Routine); Ordered 10/25/21 Ordered By: Emilio Irby Pending Pending Pending: Resuscitation Status Limited Code Diet Full Liquid Diet Start SatOct 248 Diagnostic Test (Pha) (Accu-Chek 1 Each Strip) 1 each FS [facility]S [facility] Last Admin: 10/25/21 11:33 Dose: 1 each Documented By: Admin: 10/25/21 07:52 Dose: 1 each Documented By: Admin: 10/24/21 21:21 Dose: 1 each Documented By: Admin: 10/24/21 16:48 Dose: 1 each Documented By: MELISSA Insulin Human Lispro (Insulin Lispro 1 Unit/0.01 Ml Unit) 0 unit SQ [facility]; Protocol Last Admin: 10/25/21 11:34 Dose: 6 units Documented By: Admin: 10/25/21 07:52 Dose: Not Given Documented By: Admin: 10/24/21 21:21 Dose: Not Given Documented By: Admin: 10/24/21 16:49 Dose: 6 units Documented By: MELISSA Lorazepam (Lorazepam 2 Mg/Ml Vial) 0.5 mg IV Q6HP PRN PRN Reason: ANXIETY/SEDATION Last Admin: 10/24/21 11:28 Dose: 0.5 mg Documented By: TENZIN Metoclopramide HCl (Metoclopramide 10 Mg/2 Ml Vial) 10 mg IV Q6 LEXI Last Admin: 10/25/21 11:53 Dose: 10 mg Documented By: Admin: 10/25/21 06:10 Dose: 10 mg Documented By: Admin: 10/24/21 23:04 Dose: 10 mg Documented By: Admin: 10/24/21 17:35 Dose: 10 mg Documented By: Admin: 10/24/21 11:28 Dose: 10 mg Documented By: Admin: 10/24/21 05:59 Dose: 10 mg Documented By: Admin: 10/23/21 23:50 Dose: 10 mg Documented By: PATY Ondansetron HCl (Ondansetron 4 Mg/2 Ml Vial) 4 mg IV Q4HP PRN; Protocol PRN Reason: Nausea And Vomiting Last Admin: 10/24/21 10:35 Dose: 4 mg Documented By: TENZIN Shift Summary 10/25/21 05:26 Shift Summary by Evy Alonso Addendum entered by Dinah Ríos 10/25/21 10:32: correction: patient is not homeless. Original Note: Primary Diagnosis: SBO with nausea Registration Status: IP Pertinent Medical Dx/Issue(s): CHF; Abd hernia repair; AAA repair; HTN; DM; BPH; Hx covid + Interventions: IVF; PRN pain meds; supplemental oxygen Med management (antibiotics, diuretics, BP): Accu checks with s/s insulin management; PRN morphine and scheduled Reglan Skin/Wound Care: dry skin to BLE Vital Signs with Trends: VSS on 1L NC O2, liter flow/saturations: 1L NC Pain management (acute vs. chronic): Denied having any pain Lab/Rad (abnormal, trends): 10/24- CO2: 32(high); Abd Xray scheduled for today Neuro/Mental Status: Alert and oriented x4; Non-compliant with most cares but did allow staff to place IV this shift. Urinary output greater than 30mL/hr: pt reports x1 unmeasured void in the toilet, educated pt on the importance of voiding in the urinal, so that we can track his urinary output; denies urinary pain or discomfort this shift. Pt also refused to have staff check his buttock and groin areas and repeatedly denied that he did not need clean briefs on this shift. Date of last BM: Med loose BM on this shift Lines/Tubes: 22g IV in R hand running LR @150mls/hr Activity: Independent in room; Pt sat up in chair for a while on this shift Recommendations/questions for MD: Minimal voids this shift Discharge Plan (needs, disposition, etc): TBD- Pt is homeless and does not have family to take him in. Initialized on 10/25/21 05:26 - END OF NOTE
== END 2021-10-25 16:35 | disposition home or self-care (01) | DRG 389 ==
LOC: ED 17:18 → MEDSUR 23:27
PROVIDERS: ADMIT Family Medicine Adult Medicine; ATTEND Family Medicine Adult Medicine